=== PATIENT | female | born 1935 | race Caucasian/White ===

== ENCOUNTER → 2018-02-27 | Outpatient (CLI) | payer MEDICARE ==
--- NOTE | 2018-02-28 10:39 | US ---
EXAMINATION TYPE: US kidneys/renal and bladder DATE OF EXAM: 02/27/2018 COMPARISON: NONE CLINICAL HISTORY: N18.9 renal insufficiency. EXAM MEASUREMENTS: Right Kidney: 10.8 x 4.0 x 3.5 cm Left Kidney: 9.2 x 3.3 x 3.7 cm Post Void Residual Volume: 69.1 mL Right Kidney: No hydronephrosis or masses seen probable calculi lower pole 0.2 x 0.5 x 0.3cm Left Kidney: difficult to visualize, medial cystic non vascular structure, does not appear to be co alvina off kidney, it is not aorta , Bladder: wnl Bilateral Jets seen: Yes Normal Post Void Residual: No There is no evidence for hydronephrosis at this point in time. Some cortical thinning bilaterally is noted. Technologist klein 3 mm nonshadowing hyperechoic focus right kidney lower pole level could re flect nonobstructing calculus.. Left kidney is less well seen on images saved with poor cortical medu llary differentiation technologist identifies 2.5 x 2.2 cm oval thin-walled cyst or cystic lesion med ially in region of left kidney of uncertain etiology.. The urinary bladder is not greatly distended. Bilateral ureteral jets are seen. After voiding significant amount of urine remains present, calcul ated volume is almost 70 cc. IMPRESSION: Chronic medical renal disease bilaterally worse than left kidney. Suspect diminished function of left kidney versus right kidney. No hydronephrosis is evident bilaterally. Nonspecific 2.5 cm left sided cyst or cystic lesion of uncertain etiology. Findings can be correlated with CT if desired.
== END ==
LOC: RADUSWWP 16:02
PROVIDERS: ATTEND Internal Medicine
DX: N18.9 Chronic kidney disease, unspecified (principal)
CPT/HCPCS: 76770

== ENCOUNTER → 2018-04-24 | Outpatient (CLI) | payer MEDICARE ==
[2018-04-24 11:04] LABS: Basophils % (A) 0 %; Eosinophils # (A) 0.1 k/uL (0-0.7); Eosinophils % (A) 2 %; HCT 43.8 % (34.0-46.0); HGB 14.6 gm/dL (11.4-16.0); Lymphocytes # (A) 0.9 k/uL (1.0-4.8); Lymphocytes % (A) 15 %; MCH 31.1 pg (25.0-35.0); MCHC 33.4 g/dL (31.0-37.0); MCV 93.1 fL (80.0-100.0); Mean Platelet Volume 7.7; Monocytes # (A) 0.3 k/uL (0-1.0); Monocytes % (A) 5 %; Neutrophils # (A) 4.7 k/uL (1.3-7.7); Neutrophils % (A) 76 %; Platelet Count 191 k/uL (150-450); RDW 13.7 % (11.5-15.5); WBC 6.2 k/uL (3.8-10.6)
[2018-04-24 11:31] LABS: Appearance,Urine Cloudy (Clear); Bilirubin,Urine Negative (Negative); Blood,Urine Negative (Negative); Color,Urine Yellow; Glucose,Urine (UA) Negative (Negative); Ketones,Urine Negative (Negative); Leukocyte Esterase,Urine Moderate (Negative); Mucus,Urine Rare /hpf; Nitrite,Urine Negative (Negative); Protein,Urine Negative (Negative); RBC,Urine 1 /hpf (0-5); Specific Gravity,Urine 1.008 (1.001-1.035); Squamous Epithelial Cell,Urine 2 /hpf (0-4); Urobilinogen,Urine <2.0 mg/dL (<2.0); WBC,Urine 4 /hpf (0-5)
[2018-04-24 16:05] LABS: Iron Saturation 34.83 (12.00-45.00); Protein, Total 6.9 g/dL (6.2-8.2)
[2018-04-24 16:35] LABS: Albumin 4.8 g/dL (3.80-4.90); Anion Gap 9.5 mmol/L (4.00-12.00); Carbon Dioxide 25.5 mmol/L (21.6-31.8); Magnesium 2.1 mg/dL (1.5-2.4); Phosphorus 3.1 mg/dL (2.4-5.1); Potassium 4.8 mmol/L (3.5-5.5); Uric Acid 6.1 mg/dL (2.9-7.7)
[2018-04-24 17:20] LABS: Parathyroid Hormone Intact 116.1 pg/mL (14.0-72.0)
[2018-04-24 17:44] LABS: Creatinine,Urine Random 57.6 mg/dL
[2018-04-24 18:15] LABS: Total Protein,Urine Random 13.3 mg/dL (0.0-13.5)
[2018-04-25 13:01] LABS: Albumin 4.31 g/dL (3.80-4.90)
== END | disposition home or self-care (01) ==
LOC: LABWHC1 09:55
PROVIDERS: ATTEND Internal Medicine Nephrology
DX: N18.3 Chronic kidney disease, stage 3 (moderate) (principal); D63.1 Anemia in chronic kidney disease; E55.9 Vitamin D deficiency, unspecified; E21.3 Hyperparathyroidism, unspecified; M10.9 Gout, unspecified; N39.0 Urinary tract infection, site not specified; R80.9 Proteinuria, unspecified
CPT/HCPCS: 36415; 80048; 81001; 82040; 82306; 82570; 82728; 83540; 83550; 83735; 83970; 84100; 84156; 84165; 84550; 85025; 86335

== ENCOUNTER → 2018-08-28 | Outpatient (CLI) | payer MEDICARE ==
[2018-08-28 11:05] LABS: Basophils # (A) 0.1 k/uL (0-0.2); Basophils % (A) 1 %; Eosinophils # (A) 0.1 k/uL (0-0.7); Eosinophils % (A) 2 %; HCT 44.5 % (34.0-46.0); HGB 14.9 gm/dL (11.4-16.0); Lymphocytes # (A) 1.1 k/uL (1.0-4.8); Lymphocytes % (A) 15 %; MCH 30.9 pg (25.0-35.0); MCHC 33.4 g/dL (31.0-37.0); MCV 92.5 fL (80.0-100.0); Mean Platelet Volume 7.8; Monocytes # (A) 0.3 k/uL (0-1.0); Monocytes % (A) 4 %; Neutrophils # (A) 5.9 k/uL (1.3-7.7); Neutrophils % (A) 77 %; Platelet Count 180 k/uL (150-450); RBC 4.81 m/uL (3.80-5.40); RDW 13.7 % (11.5-15.5); WBC 7.6 k/uL (3.8-10.6)
[2018-08-28 11:18] LABS: Appearance,Urine Clear (Clear); Bacteria,Urine Rare /hpf; Bilirubin,Urine Negative (Negative); Blood,Urine Negative (Negative); Color,Urine Light Yellow; Glucose,Urine (UA) Negative (Negative); Ketones,Urine Negative (Negative); Leukocyte Esterase,Urine Large (Negative); Mucus,Urine Rare /hpf; Nitrite,Urine Negative (Negative); PH, Urine 5.5 (5.0-8.0); Protein,Urine Negative (Negative); RBC,Urine 4 /hpf (0-5); Specific Gravity,Urine 1.009 (1.001-1.035); Squamous Epithelial Cell,Urine 5 /hpf (0-4); Urobilinogen,Urine <2.0 mg/dL (<2.0); WBC,Urine 6 /hpf (0-5)
[2018-08-28 15:33] LABS: Parathyroid Hormone Intact 95.3 pg/mL (14.0-72.0)
[2018-08-28 16:02] LABS: Iron Saturation 39.51 (12.00-45.00); Protein, Total 6.9 g/dL (6.2-8.2)
[2018-08-28 16:09] LABS: Vitamin D 25 Hydroxy 46.1 ng/mL (30.0-100.0)
[2018-08-28 17:30] LABS: Albumin 4.8 g/dL (3.80-4.90); Anion Gap 10.1 mmol/L (4.00-12.00); Calcium 9.6 mg/dL (8.7-10.3); Carbon Dioxide 24.9 mmol/L (21.6-31.8); Magnesium 2.1 mg/dL (1.5-2.4); Phosphorus 3.2 mg/dL (2.4-5.1); Potassium 4.7 mmol/L (3.5-5.5); Uric Acid 5.9 mg/dL (2.9-7.7)
[2018-08-28 18:05] LABS: Creatinine,Urine Random 50.3 mg/dL
[2018-08-28 19:03] LABS: Total Protein,Urine Random 8.5 mg/dL (0.0-13.5)
[2018-08-29 14:16] LABS: Albumin 4.31 g/dL (3.80-4.90); Gamma Globulin 0.92 g/dL (0.70-1.50)
== END | disposition home or self-care (01) ==
LOC: LABWHC1 09:48
PROVIDERS: ATTEND Internal Medicine Nephrology
DX: E55.9 Vitamin D deficiency, unspecified (principal); N25.81 Secondary hyperparathyroidism of renal origin; M10.9 Gout, unspecified; R80.9 Proteinuria, unspecified; N18.3 Chronic kidney disease, stage 3 (moderate)
CPT/HCPCS: 36415; 80048; 81001; 82040; 82306; 82570; 82728; 83540; 83550; 83735; 83970; 84100; 84156; 84165; 84550; 85025; 86335

== ENCOUNTER → 2019-11-19 | Outpatient (CLI) | payer MEDICARE ==
[2019-11-19 14:36] LABS: HCT 46.1 % (34.0-46.0); HGB 15.6 gm/dL (11.4-16.0); MCH 32.2 pg (25.0-35.0); MCHC 33.8 g/dL (31.0-37.0); MCV 95.4 fL (80.0-100.0); Mean Platelet Volume 8.7; Platelet Count 193 k/uL (150-450); RBC 4.83 m/uL (3.80-5.40); RDW 13.6 % (11.5-15.5); WBC 7.4 k/uL (3.8-10.6)
[2019-11-19 15:16] LABS: Appearance,Urine Clear (Clear); Bacteria,Urine Occasional /hpf; Bilirubin,Urine Negative (Negative); Blood,Urine Negative (Negative); Color,Urine Light Yellow; Glucose,Urine (UA) Negative (Negative); Ketones,Urine Negative (Negative); Leukocyte Esterase,Urine Small (Negative); Nitrite,Urine Negative (Negative); PH, Urine 6.5 (5.0-8.0); Protein,Urine Negative (Negative); RBC,Urine <1 /hpf (0-5); Specific Gravity,Urine 1.007 (1.001-1.035); Squamous Epithelial Cell,Urine 1 /hpf (0-4); Urobilinogen,Urine <2.0 mg/dL (<2.0); WBC,Urine 1 /hpf (0-5)
[2019-11-19 20:06] LABS: % Iron Saturation 35.11 (12.00-45.00); African American GFR (CKD) 40.2 (60.0-200.0); Anion Gap 10.8 mmol/L (4.00-12.00); BUN/Creat Ratio 13.57 Ratio (12.00-20.00); Calcium 9.8 mg/dL (8.7-10.3); Carbon Dioxide 23.2 mmol/L (21.6-31.8); Magnesium 2.2 mg/dL (1.5-2.4); Non-African American GFR(CKD) 34.7 (60.0-200.0); Phosphorus 3.6 mg/dL (2.4-5.1); Potassium 4.5 mmol/L (3.5-5.5); Uric Acid 6.6 mg/dL (2.9-7.7)
[2019-11-19 20:14] LABS: Ferritin 240.5 ng/mL (10.0-291.0)
== END | disposition home or self-care (01) ==
LOC: LABWHC1 13:43
PROVIDERS: ATTEND Nurse Practitioner Family
DX: N18.3 Chronic kidney disease, stage 3 (moderate) (principal); D63.1 Anemia in chronic kidney disease; E55.9 Vitamin D deficiency, unspecified; M10.9 Gout, unspecified; N25.81 Secondary hyperparathyroidism of renal origin; N39.0 Urinary tract infection, site not specified
CPT/HCPCS: 36415; 80048; 81001; 82306; 82728; 83540; 83550; 83735; 83970; 84100; 84550; 85027

== ENCOUNTER → 2021-01-26 | Outpatient (CLI) | payer MEDICARE ==
--- NOTE | 2021-01-27 07:47 | US ---
EXAMINATION TYPE: US kidneys/renal and bladder DATE OF EXAM: 01/26/2021 COMPARISON: US 2018 CLINICAL HISTORY: N18.32 Chronic kidney disease,stage 3b. EXAM MEASUREMENTS: Right Kidney: 11.4 x 4.3 x 4.7 cm Left Kidney: 10.9 x 4.3 x 3.7 cm Right Kidney: dilated renal pelvis Left Kidney: lobulated contour, 0.6cm stone lateral mid pole, 5.9 x 2.9 x 5.2cm anechoic non vascular area seen medial to left kidney Bladder: wnl Bilateral Jets seen: yes Right ovary: 2.1 x 1.5 x 2.2cm cyst Urinary bladder is present. Posterior wall is normal. IMPRESSION: 1. Left renal stone without obstruction. 2. Inferior pole left renal cyst. 3. 6 x 3 x 5 cm anechoic nonvascular structure which is medial to the left kidney of uncertain etiolo gy. Consider CT abdomen for additional evaluation. 4. Note is made of a right ovarian cyst
== END | disposition home or self-care (01) ==
LOC: RADUSWWP 15:25
PROVIDERS: ATTEND Internal Medicine Nephrology
DX: N18.32 Chronic kidney disease, stage 3b (principal); N20.0 Calculus of kidney; N28.1 Cyst of kidney, acquired; N83.201 Unspecified ovarian cyst, right side
CPT/HCPCS: 76770

== ENCOUNTER → 2021-02-12 | Outpatient (CLI) | payer MEDICARE ==
--- NOTE | 2021-02-12 15:08 | CT ---
EXAMINATION TYPE: CT abdomen wo con DATE OF EXAM: 02/12/2021 HISTORY: Kidney disease, and left renal cyst CT DLP: 247.90 mGycm. Automated Exposure Control for Dose Reduction was Utilized. TECHNIQUE: CT scan of the abdomen is performed with oral but without IV contrast. COMPARISON: Renal ultrasound 2020 and older study 2018 FINDINGS: Within the limitations of a non-contrast study, the following observations are made. LUNG BASES: Pectus excavatum deformity inferiorly. Heart size upper limits of normal tiny inferior pe ricardial effusion LIVER/GB: No significant abnormality is appreciated. PANCREAS: No significant abnormality is seen. SPLEEN: No significant abnormality is seen. ADRENALS: Low dense thickening to left adrenal gland consistent with benign lipid rich hyperplasia. KIDNEYS: Asymmetric marked cortical atrophy to the left kidney versus the opposite right kidney. Mild diffuse cortical thinning right kidney. Scattered throughout the left kidney there are multiple cent ral simple appearing parapelvic cyst. No hydroureter identified. Mildly prominent right renal pelvis without calyceal dilatation. There is 5 mm calculus mid to lower pole level image 54. BOWEL: No suspicious dilatation. Oral contrast does not reach colonic level. A few scattered colonic diverticula. LYMPH NODES: No greater than 1cm abdominal lymph nodes are appreciated. OSSEOUS STRUCTURES: Underlying dextroconvex scoliosis centered at L2 level. Mild to moderate disc spa ce narrowing L1-L2 and L2-L3 levels. OTHER: Moderate calcified plaque of the infrarenal abdominal aorta. IMPRESSION: Asymmetric significant left renal atrophy despite overall length within normal limits. Th ere is 5 mm nonobstructing left renal calculus. Prominent central parapelvic cyst left kidney without hydronephrosis. Small right extrarenal pelvis without calyceal dilatation.
== END | disposition home or self-care (01) ==
LOC: RADCTMAIN 12:58
PROVIDERS: ATTEND Internal Medicine Nephrology
DX: N26.1 Atrophy of kidney (terminal) (principal); N20.0 Calculus of kidney; N94.89 Other specified conditions associated with female genital organs and menstrual cycle
CPT/HCPCS: 74150

== ENCOUNTER → 2021-06-09 | Outpatient (CLI) | payer MEDICARE ==
[2021-06-09 16:03] LABS: Appearance,Urine Clear (Clear); Bilirubin,Urine Negative (Negative); Blood,Urine Negative (Negative); Color,Urine Light Yellow; Glucose,Urine (UA) Negative (Negative); Ketones,Urine Negative (Negative); Leukocyte Esterase,Urine Negative (Negative); Nitrite,Urine Negative (Negative); PH, Urine 5.5 (5.0-8.0); Protein,Urine Negative (Negative); Specific Gravity,Urine 1.007 (1.001-1.035); Urobilinogen,Urine <2.0 mg/dL (<2.0)
[2021-06-09 16:40] LABS: Creatinine,Urine Random 39.3 mg/dL; Protein/Creatinine Ratio,Urine 0.229
[2021-06-09 22:33] LABS: Basophils # (A) 0.04 X 10*3/uL (0.00-0.10); Basophils % (A) 0.5 %; Eosinophils # (A) 0.08 X 10*3/uL (0.04-0.35); Eosinophils % (A) 1.1 %; HCT 44.6 % (37.2-46.3); HGB 14.6 g/dL (12.0-15.0); Lymphocytes # (A) 1.15 X 10*3/uL (0.90-5.00); Lymphocytes % (A) 15.5 %; MCH 31.4 pg (27.0-32.0); MCHC 32.7 g/dL (32.0-37.0); MCV 95.9 fL (80.0-97.0); Mean Platelet Volume 11.5 fL (9.5-12.2); Monocytes # (A) 0.56 X 10*3/uL (0.20-1.00); Monocytes % (A) 7.5 %; Neutrophils # (A) 5.57 X 10*3/uL (1.80-7.70); Platelet Count 188 X 10*3/uL (140-440); RBC 4.65 X 10*6/uL (4.10-5.20); RDW 13.8 % (11.5-14.5); WBC 7.43 X 10*3/uL (4.50-10.00)
[2021-06-09 23:02] LABS: % Iron Saturation 24.33 (12.00-45.00); Anion Gap 12.6 mmol/L (10.00-18.00); BUN/Creat Ratio 17.67 Ratio (12.00-20.00); Blood Urea Nitrogen 22.8 mg/dL (9.0-27.0); Calcium 10.2 mg/dL (8.7-10.3); Carbon Dioxide 24.3 mmol/L (20.0-27.5); Potassium 4.8 mmol/L (3.5-5.5)
== END | disposition home or self-care (01) ==
LOC: LABWHC1 13:36
PROVIDERS: ATTEND Nurse Practitioner Family
DX: N25.81 Secondary hyperparathyroidism of renal origin (principal); N18.32 Chronic kidney disease, stage 3b; E21.3 Hyperparathyroidism, unspecified; N39.0 Urinary tract infection, site not specified; D64.9 Anemia, unspecified; R80.9 Proteinuria, unspecified
CPT/HCPCS: 36415; 80048; 81003; 82570; 82728; 83540; 83550; 83970; 84156; 85025

== ENCOUNTER 2022-02-26 04:10 | Emergency (ER) | payer MEDICARE ==
[2022-02-26 04:23] VITALS: PULSE 84; RESP 19; TEMP 97.6
[2022-02-26] MEDS ORDERED: MECLIZINE 12.5 MG TAB PO STA (04:31)
--- NOTE | 2022-02-26 05:08 | XR ---
EXAMINATION TYPE: XR chest 1V portable DATE OF EXAM: 02/26/2022 COMPARISON: NONE HISTORY: Vertigo TECHNIQUE: Single view FINDINGS: There is no heart failure nor confluent pneumonic infiltrate. There are calcified granuloma ta at the pulmonary anthony. No pleural effusion. Thoracic aorta is atheromatous. IMPRESSION: Old granulomatous disease. No active cardiopulmonary disease.
[2022-02-26 05:17] LABS: Basophils % (A) 0 %; Eosinophils # (A) 0.1 k/uL (0-0.7); Eosinophils % (A) 1 %; HCT 41.3 % (34.0-46.0); HGB 14.5 gm/dL (11.4-16.0); Lymphocytes # (A) 0.5 k/uL (1.0-4.8); Lymphocytes % (A) 6 %; MCH 32.4 pg (25.0-35.0); MCHC 35.2 g/dL (31.0-37.0); Monocytes # (A) 0.1 k/uL (0-1.0); Monocytes % (A) 2 %; Neutrophils # (A) 7.6 k/uL (1.3-7.7); Neutrophils % (A) 92 %; Platelet Count 166 k/uL (150-450); RBC 4.49 m/uL (3.80-5.40); RDW 13.3 % (11.5-15.5); WBC 8.3 k/uL (3.8-10.6)
[2022-02-26 05:35] LABS: Albumin 4.5 g/dL (3.5-5.0); Calcium 9.4 mg/dL (8.4-10.2); Potassium 4.1 mmol/L (3.5-5.1); Total Bilirubin 0.7 mg/dL (0.2-1.3); Total Protein 7.1 g/dL (6.3-8.2)
[2022-02-26] MEDS ORDERED: ACETAMINOPHEN TAB 325 MG TAB PO STA (05:54)
[2022-02-26] MEDS ORDERED: ONDANSETRON 4 MG/2 ML VIAL IVP STA (06:43)
[2022-02-26 07:56] LABS: Amorphous Sediment,Urine Rare /hpf; Appearance,Urine Cloudy (Clear); Bacteria,Urine Rare /hpf; Bilirubin,Urine Negative (Negative); Blood,Urine Negative (Negative); Color,Urine Light Yellow; Glucose,Urine (UA) Negative (Negative); Ketones,Urine Trace (Negative); Leukocyte Esterase,Urine Negative (Negative); Nitrite,Urine Negative (Negative); PH, Urine 7.5 (5.0-8.0); Protein,Urine Trace (Negative); RBC,Urine 1 /hpf (0-5); Specific Gravity,Urine 1.014 (1.001-1.035); Squamous Epithelial Cell,Urine <1 /hpf (0-4); Urobilinogen,Urine <2.0 mg/dL (<2.0); WBC,Urine 1 /hpf (0-5)
--- NOTE | 2022-02-26 08:10 | ED ---
Dizziness HPI - General Chief Complaint: Dizziness Stated Complaint: Dizziness, vomiting Time Seen by Provider: 02/26/22 04:31 Source: patient, family Mode of arrival: wheelchair - History of Present Illness Initial Comments: This patient is an 86-year-old woman who presents to have evaluation of what she is describing as dizziness. This had come on tonight as she was going to bed. She describes the dizziness as a feeling like the room is spinning. She states it feels like her eyes are jumping around. She notes that it does get worse with position change. The symptoms are better with remaining still. She did not have any injury. There is no headache. No other neurologic symptoms. MD Complaint: dizziness -: hour(s) Timing: sudden onset Description: "room spinning" History of Same: No History of Trauma: No Severity: severe Improves With: remaining still Worsens With: movement Associated Symptoms: other (Nausea and vomiting) - Related Data Previous Rx's Medication Instructions Recorded Meclizine [Antivert] 25 mg PO TID PRN #15 tab 02/26/22 Ondansetron Odt [Zofran ODT] 4 mg PO Q8HR PRN #10 tab 02/26/22 Allergies Allergy/AdvReac Type Severity Reaction Status Date / Time No Known Allergies Allergy Verified 02/26/22 04:23 Review of Systems ROS Statement: Those systems with pertinent positive or pertinent negative responses have been documented in the HPI. ROS Other: All systems not noted in ROS Statement are negative. Constitutional: Denies: fever, chills, weakness Eyes: Reports: as per HPI. Denies: vision change ENT: Denies: ear pain, hearing loss Respiratory: Denies: cough, dyspnea Cardiovascular: Denies: chest pain, palpitations, orthopnea, edema, syncope Gastrointestinal: Reports: nausea, vomiting. Denies: abdominal pain, diarrhea, hematemesis, melena, hematochezia Genitourinary: Denies: dysuria, hematuria Musculoskeletal: Denies: back pain Skin: Denies: rash Neurological: Reports: vertigo. Denies: headache, weakness, numbness, confusion Past Medical History Past Medical History: Hyperlipidemia, Hypertension, Renal Disease Additional Past Medical History / Comment(s): "silent heart attack" History of Any Multi-Drug Resistant Organisms: None Reported Past Surgical History: Appendectomy Additional Past Surgical History / Comment(s): ectopic Past Psychological History: No Psychological Hx Reported Smoking Status: Never smoker Past Alcohol Use History: None Reported Past Drug Use History: None Reported General Exam General appearance: alert, in no apparent distress Head exam: Present: atraumatic, normocephalic Eye exam: Present: normal appearance, PERRL, EOMI, nystagmus. Absent: scleral icterus, conjunctival injection Neck exam: Present: normal inspection Respiratory exam: Present: normal lung sounds bilaterally. Absent: respiratory distress, wheezes, rales, rhonchi, stridor Cardiovascular Exam: Present: regular rate, normal rhythm, normal heart sounds. Absent: systolic murmur, diastolic murmur, rubs, gallop GI/Abdominal exam: Present: soft. Absent: distended, tenderness, guarding, rebound, rigid, mass Extremities exam: Present: normal inspection, normal capillary refill. Absent: pedal edema, calf tenderness Back exam: Present: normal inspection. Absent: CVA tenderness (R), CVA tenderness (L) Neurological exam: Present: alert, oriented X3, CN II-XII intact. Absent: motor sensory deficit Skin exam: Present: warm, dry, intact, normal color. Absent: rash Course Vital Signs 02/26/22 04:19 Temperature 97.6 F Pulse Rate 84 Respiratory 19 Rate O2 Sat by Pulse 98 Oximetry Medical Decision Making - Medical Decision Making This patient is an 86-year-old woman with classic peripheral vertigo. Workup is negative. She is feeling a little better after medications. We discussed appropriate further care and follow-up as well as return parameters. - Lab Data Result diagrams: 02/26/22 05:05 02/26/22 05:05 Lab Results 02/26/22 02/26/22 02/26/22 Range/Units 05:05 05:05 05:05 WBC 8.3 (3.8-10.6) k/uL RBC 4.49 (3.80-5.40) m/uL Hgb 14.5 (11.4-16.0) gm/dL Hct 41.3 (34.0-46.0) % MCV 92.0 (80.0-100.0) fL MCH 32.4 (25.0-35.0) pg MCHC 35.2 (31.0-37.0) g/dL RDW 13.3 (11.5-15.5) % Plt Count 166 (150-450) k/uL MPV 9.0 Neutrophils % 92 % Lymphocytes % 6 % Monocytes % 2 % Eosinophils % 1 % Basophils % 0 % Neutrophils # 7.6 (1.3-7.7) k/uL Lymphocytes # 0.5 L (1.0-4.8) k/uL Monocytes # 0.1 (0-1.0) k/uL Eosinophils # 0.1 (0-0.7) k/uL Basophils # 0.0 (0-0.2) k/uL Sodium 139 (137-145) mmol/L Potassium 4.1 (3.5-5.1) mmol/L Chloride 104 (98-107) mmol/L Carbon Dioxide 25 (22-30) mmol/L Anion Gap 10 mmol/L BUN 26 H (7-17) mg/dL Creatinine 1.09 H (0.52-1.04) mg/dL Est GFR (CKD-EPI)AfAm 54 (>60 ml/min/1.73 sqM) Est GFR (CKD-EPI)NonAf 47 (>60 ml/min/1.73 sqM) Glucose 153 H (74-99) mg/dL Plasma Lactic Acid Jerome 1.1 (0.7-2.0) mmol/L Calcium 9.4 (8.4-10.2) mg/dL Total Bilirubin 0.7 (0.2-1.3) mg/dL AST 24 (14-36) U/L ALT 18 (4-34) U/L Alkaline Phosphatase 98 (38-126) U/L Troponin I (0.000-0.034) ng/mL Total Protein 7.1 (6.3-8.2) g/dL Albumin 4.5 (3.5-5.0) g/dL Urine Color Urine Appearance (Clear) Urine pH (5.0-8.0) Ur Specific [place] (1.001-1.035) Urine Protein (Negative) Urine Glucose (UA) (Negative) Urine Ketones (Negative) Urine Blood (Negative) Urine Nitrite (Negative) Urine Bilirubin (Negative) Urine Urobilinogen (<2.0) mg/dL Ur Leukocyte Esterase (Negative) Urine RBC (0-5) /hpf Urine WBC (0-5) /hpf Ur Squamous Epith Cells (0-4) /hpf Amorphous Sediment (None) /hpf Urine Bacteria (None) /hpf 02/26/22 02/26/22 Range/Units 05:05 07:50 WBC (3.8-10.6) k/uL RBC (3.80-5.40) m/uL Hgb (11.4-16.0) gm/dL Hct (34.0-46.0) % MCV (80.0-100.0) fL MCH (25.0-35.0) pg MCHC (31.0-37.0) g/dL RDW (11.5-15.5) % Plt Count (150-450) k/uL MPV Neutrophils % % Lymphocytes % % Monocytes % % Eosinophils % % Basophils % % Neutrophils # (1.3-7.7) k/uL Lymphocytes # (1.0-4.8) k/uL Monocytes # (0-1.0) k/uL Eosinophils # (0-0.7) k/uL Basophils # (0-0.2) k/uL Sodium (137-145) mmol/L Potassium (3.5-5.1) mmol/L Chloride (98-107) mmol/L Carbon Dioxide (22-30) mmol/L Anion Gap mmol/L BUN (7-17) mg/dL Creatinine (0.52-1.04) mg/dL Est GFR (CKD-EPI)AfAm (>60 ml/min/1.73 sqM) Est GFR (CKD-EPI)NonAf (>60 ml/min/1.73 sqM) Glucose (74-99) mg/dL Plasma Lactic Acid Jerome (0.7-2.0) mmol/L Calcium (8.4-10.2) mg/dL Total Bilirubin (0.2-1.3) mg/dL AST (14-36) U/L ALT (4-34) U/L Alkaline Phosphatase (38-126) U/L Troponin I <0.012 (0.000-0.034) ng/mL Total Protein (6.3-8.2) g/dL Albumin (3.5-5.0) g/dL Urine Color Light Yellow Urine Appearance Cloudy H (Clear) Urine pH 7.5 (5.0-8.0) Ur Specific [place] 1.014 (1.001-1.035) Urine Protein Trace H (Negative) Urine Glucose (UA) Negative (Negative) Urine Ketones Trace H (Negative) Urine Blood Negative (Negative) Urine Nitrite Negative (Negative) Urine Bilirubin Negative (Negative) Urine Urobilinogen <2.0 (<2.0) mg/dL Ur Leukocyte Esterase Negative (Negative) Urine RBC 1 (0-5) /hpf Urine WBC 1 (0-5) /hpf Ur Squamous Epith Cells <1 (0-4) /hpf Amorphous Sediment Rare H (None) /hpf Urine Bacteria Rare H (None) /hpf Disposition Clinical Impression: Vertigo Disposition: HOME SELF-CARE Condition: Good Instructions (If sedation given, give patient instructions): Vertigo (ED) Prescriptions: Meclizine [Antivert] 25 mg PO TID PRN #15 tab PRN Reason: Vertigo Ondansetron Odt [Zofran ODT] 4 mg PO Q8HR PRN #10 tab PRN Reason: Nausea Is patient prescribed a controlled substance at d/c from ED?: No Referrals: Eloy Valdez MD [Primary Care Provider] - 1-2 days
--- NOTE | 2022-02-26 08:14 | CT ---
EXAMINATION TYPE: CT angio head neck DATE OF EXAM: 02/26/2022 HISTORY: vertigo COMPARISON: None CT DLP: 1476.1 mGycm. Automated Exposure Control for Dose Reduction was Utilized. TECHNIQUE: CTA scan of the head and neck is performed without and with IV Contrast, patient injected with 65 mL of Isovue 370, axial images are obtained, coronal and sagittal reformatted images are rev iewed. 3D reconstructed images are created on an independent workstation and reviewed. Automated expo sure control for dose reduction. FINDINGS: Brain shows periventricular white matter low-attenuation. No hemorrhage or hydrocephalus. C erebral vascular calcifications are present. Orbits are symmetric. Pectus deformity noted incidentall y in the upper chest. Carotid/Vascular Structures: Transverse aorta is patent. There are 3 super aortic branch vessels. The innominate, left and right subclavian, left and right vertebral arteries, left and right common hare tid arteries are patent. No evident stenosis, dissection, or embolus. Vertebral arteries are codomina nt. Anterior and posterior circulation within the brain are patent. No evident aneurysm, stenosis, dissec tion, or embolus. Other: IMPRESSION: No significant abnormality is seen. NASCET criteria was used in interpretation of this exam?
== END 2022-02-26 09:03 | disposition home or self-care (01) ==
LOC: EC 04:10
DX: R42 Dizziness and giddiness (principal); E78.5 Hyperlipidemia, unspecified; I12.9 Hypertensive chronic kidney disease with stage 1 through stage 4 chronic kidney disease, or unspecified chronic kidney disease; N18.9 Chronic kidney disease, unspecified; Z79.899 Other long term (current) drug therapy
CPT/HCPCS: 36415; 93005; 80053; 83605; 84484; 85025; 81001; 71045; 70496; 70498; 99284; 96374; 96375; J3360; J2405; Q9967

== ENCOUNTER 2023-07-06 20:13 | Emergency (ER) | payer MEDICARE ==
[2023-07-06 20:39] VITALS: RESP 16; TEMP 98.6
--- NOTE | 2023-07-06 20:53 | ED ---
Female Urogenital HPI - General Chief complaint: Urogenital Stated complaint: dizziness prolapsed bladder Time Seen by Provider: 07/06/23 20:52 Source: patient, family Mode of arrival: ambulatory Limitations: no limitations - History of Present Illness Initial comments: 87-year-old male presents to the ED with a chief complaint of urinary problem. Patient states recently treated for UTI. Reports UTI symptoms however most recently feels as if her bladder "popped out". States that this sometimes gives her trouble urinating however states that she is able to push it back in and this resolves. Does not currently follow with OBGYN. - Related Data Previous Rx's Medication Instructions Recorded Meclizine [Antivert] 25 mg PO TID PRN #15 tab 02/26/22 Ondansetron Odt [Zofran ODT] 4 mg PO Q8HR PRN #10 tab 02/26/22 Allergies Allergy/AdvReac Type Severity Reaction Status Date / Time No Known Allergies Allergy Verified 07/06/23 20:23 Review of Systems ROS Statement: Those systems with pertinent positive or pertinent negative responses have been documented in the HPI. ROS Other: All systems not noted in ROS Statement are negative. Past Medical History Past Medical History: Hyperlipidemia, Hypertension, Renal Disease Additional Past Medical History / Comment(s): "silent heart attack" History of Any Multi-Drug Resistant Organisms: None Reported Past Surgical History: Appendectomy Additional Past Surgical History / Comment(s): ectopic Past Psychological History: No Psychological Hx Reported Smoking Status: Never smoker Past Alcohol Use History: None Reported Past Drug Use History: None Reported General Exam - General Exam Comments Initial Comments: Visual Physical Exam Vital signs reviewed General: Well-appearing, nontoxic, no acute distress. Head: Normocephalic, atraumatic Eyes: PERRLA, EOMI ENT: Airway patent Chest: Nonlabored breathing Skin: No visual rash, normal skin tone Neuro: Alert and oriented 3 Musculoskeletal: No gross abnormalities Limitations: no limitations General appearance: alert, in no apparent distress Eye exam: Present: normal appearance Neck exam: Present: normal inspection Respiratory exam: Present: normal lung sounds bilaterally Cardiovascular Exam: Present: regular rate, normal rhythm GI/Abdominal exam: Present: soft External exam: Present: other (Exam chaperoned by Lalitha AMIN. Exam did not show any obvious large rectocele, cystocele, uterine prolapse.) Neurological exam: Present: alert, oriented X3 Skin exam: Present: warm, dry Course Vital Signs 07/06/23 20:23 Temperature 98.6 F Pulse Rate 117 H Respiratory 16 Rate Blood Pressure 172/80 O2 Sat by Pulse 95 Oximetry Medical Decision Making - Medical Decision Making Was pt. sent in by a medical professional or institution (STEFANY Boudreaux, TIRE CARE MANAGER, urgent care, hospital, or jail...) When possible be specific @ -No Did you speak to anyone other than the patient for history (EMS, parent, family, police, friend...)? What history was obtained from this source @ -No Did you review nursing and triage notes (agree or disagree)? Why? @ -I reviewed and agree with nursing and triage notes Were old charts reviewed (outside hosp., previous admission, EMS record, old EKG, old radiological studies, urgent care reports/EKG's, jail records)? Report findings @ -No old charts were reviewed Differential Diagnosis (chest pain, altered mental status, abdominal pain women, abdominal pain men, vaginal bleeding, weakness, fever, dyspnea, syncope, headache, dizziness, GI bleed, back pain, seizure, CVA, palpatations, mental health, musculoskeletal)? @ -Cystocele, rectocele, uterine prolapse. This not meant to be an all- inclusive list. EKG interpreted by me (3pts min.). @ -None X-rays interpreted by me (1pt min.). @ -None done CT interpreted by me (1pt min.). @ -None done U/S interpreted by me (1pt. min.). @ -None done What testing was considered but not performed or refused? (CT, X-rays, U/S, labs)? Why? @ -None What meds were considered but not given or refused? Why? @ -None Did you discuss the management of the patient with other professionals ([facility] i.e. STEFANY Boudreaux, TIRE CARE MANAGER, lab, RT, psych nurse, social media editor, account executive sales representative, teacher, commanding officer homicide squad, case worker)? Give summary @ -No Was smoking cessation discussed for >3mins.? @ -No Was critical care preformed (if so, how long)? @ -No Were there social determinants of health that impacted care today? How? (Homelessness, low income, unemployed, alcoholism, drug addiction, transportation, low edu. Level, literacy, decrease access to med. care, alf, rehab)? @ -No Was there de-escalation of care discussed even if they declined (Discuss DNR or withdrawal of care, Hospice)? DNR status @ -No What co-morbidities impacted this encounter? (DM, HTN, Smoking, COPD, CAD, Cancer, CVA, ARF, Chemo, Hep., AIDS, mental health diagnosis, sleep apnea, morbid obesity)? @ -None Was patient admitted / discharged? Hospital course, mention meds given and route, prescriptions, significant lab abnormalities, going to OR and other pertinent info. @ -Discharge 87-year-old female presents to the ED with complaints of "bulge" in her private area. On limited pelvic exam no obvious large cystocele, rectocele, or uterine prolapse however patient reports that she has been able to spontaneously reduce this herself. Reports that she has been able to urinate without difficulties. Patient does not follow-up with CARDIAC CATH TECH. Patient was given referral to see CARDIAC CATH TECH. Discussed return precautions with patient and family who verbalized agreement. Undiagnosed new problem with uncertain prognosis? @ -No Drug Therapy requiring intensive monitoring for toxicity (Heparin, Nitro, Insuli n, Cardizem)? @ -No Were any procedures done? @ -No Diagnosis/symptom? @ -Cystocele versus uterine prolapse Acute, or Chronic, or Acute on Chronic? @ -Acute Uncomplicated (without systemic symptoms) or Complicated (systemic symptoms)? @ -Uncomplicated Side effects of treatment? @ -No Exacerbation, Progression, or Severe Exacerbation? @ -No Poses a threat to life or bodily function? How? (Chest pain, [place], [place], pneumonia, PE, COPD, DKA, ARF, appy, cholecystitis, CVA, Diverticulitis, Homicidal, Suicidal, threat to staff... and all critical care pts) @ -No Disposition Clinical Impression: Cystocele Disposition: HOME SELF-CARE Condition: Good Instructions (If sedation given, give patient instructions): Cystocele (ED), Uterine Prolapse (ED) Additional Instructions: Please return to the Emergency Department if symptoms worsen or any other concerns. Please follow-up with CARDIAC CATH TECH. Is patient prescribed a controlled substance at d/c from ED?: No Referrals: Eloy Valdez MD [Primary Care Provider] - 1-2 days Ursula Yadav MD [STAFF PHYSICIAN] - 1-2 days Time of Disposition: 00:00
[2023-07-07 00:44] VITALS: BP 147/97; PULSE 100
== END 2023-07-07 00:21 | disposition home or self-care (01) ==
LOC: EC 20:13
DX: N81.10 Cystocele, unspecified (principal); I10 Essential (primary) hypertension

== ENCOUNTER 2023-10-08 09:58 | Emergency (ER) | payer MEDICARE ==
--- NOTE | 2023-10-08 10:23 | ED ---
Dizziness HPI - General Chief Complaint: Dizziness Stated Complaint: Dizziness Time Seen by Provider: 10/08/23 10:08 Source: patient, family, RN notes reviewed Mode of arrival: ambulatory Limitations: no limitations - History of Present Illness Initial Comments: This is an 88-year-old female who presents to the emergency department for dizziness. Patient states that this morning she started to notice dizziness when rolling over in bed. Describes this as a room spinning sensation. Denies any nausea or vomiting. States that she does feel unsteady on her feet. She has some weakness in her legs that started around 330 this morning. Does not believe that one side is worse than the other. Reports a history of vertigo and states that symptoms feel the same. Also states that her pharmacy has not refilled her amlodipine, which she takes for her blood pressure. She has not had this in 5 days. Denies any headaches, visual changes, chest pain, or shortness of breath. MD Complaint: dizziness - Related Data Previous Rx's Medication Instructions Recorded Meclizine [Antivert] 25 mg PO TID PRN #15 tab 02/26/22 Ondansetron Odt [Zofran ODT] 4 mg PO Q8HR PRN #10 tab 02/26/22 Meclizine [Antivert] 25 mg PO QID PRN #30 tab 10/08/23 amLODIPine [Norvasc] 5 mg PO DAILY #30 tab 10/08/23 cefUROXime axetiL [Ceftin] 500 mg PO BID 7 Days #14 tab 10/08/23 Allergies Allergy/AdvReac Type Severity Reaction Status Date / Time No Known Allergies Allergy Verified 07/06/23 20:23 Review of Systems ROS Statement: Those systems with pertinent positive or pertinent negative responses have been documented in the HPI. ROS Other: All systems not noted in ROS Statement are negative. Past Medical History Past Medical History: Hyperlipidemia, Hypertension, Renal Disease Additional Past Medical History / Comment(s): "silent heart attack", prolapsed bladder History of Any Multi-Drug Resistant Organisms: None Reported Past Surgical History: Appendectomy Additional Past Surgical History / Comment(s): bladder pessary, ectopic Past Psychological History: No Psychological Hx Reported Smoking Status: Never smoker Past Alcohol Use History: None Reported Past Drug Use History: None Reported General Exam Limitations: no limitations General appearance: alert, in no apparent distress Head exam: Present: atraumatic, normocephalic, normal inspection Eye exam: Present: normal appearance, PERRL, EOMI. Absent: scleral icterus, conjunctival injection, periorbital swelling ENT exam: Present: TM's normal bilaterally, normal external ear exam Respiratory exam: Present: normal lung sounds bilaterally. Absent: respiratory distress, wheezes, rales, rhonchi, stridor Cardiovascular Exam: Present: regular rate, normal rhythm, normal heart sounds. Absent: systolic murmur, diastolic murmur, rubs, gallop, clicks Neurological exam: Present: alert, oriented X3, CN II-XII intact Expanded Cerebellar function: Finger to Nose: Normal, Heel to Lubin: Normal, Romberg: Normal Motor strength exam: RUE: 5, LUE: 5, RLE: 5, LLE: 5 Psychiatric exam: Present: normal affect, normal mood Skin exam: Present: warm, dry, intact, normal color. Absent: rash Course Vital Signs 10/08/23 10/08/23 10/08/23 10:02 11:03 12:15 Temperature 97.7 F Pulse Rate 103 H 90 85 Respiratory 18 18 18 Rate Blood Pressure 177/106 150/90 133/85 O2 Sat by Pulse 96 96 96 Oximetry Medical Decision Making - Medical Decision Making This is an 88 year old female who presents to the emergency department for dizziness. Was pt. sent in by a medical professional or institution? @ -No Did you speak to anyone other than the patient for history? @ -No Did you review nursing and triage notes? @ -Yes, and I agree, it is accurate with regards to the patient's symptoms. Were old charts reviewed? @ -No Differential Diagnosis? @ -Differential Dizziness: Benign paroxysmal positional Vertigo, Menieres disease, otitis media, acoustic neuroma, vertebrobasilar insufficiency, cerebellar stroke, encephalitis, hypovolemic, arrhythmia, coronary artery syndrome, anemia, this is not meant to be an all-inclusive list EKG interpreted by me (3pts min.)? @ -EKG interpreted by me demonstrating the following: Sinus rhythm. Ventricular rate 89 bpm, W[place] interval 171 ms, QRS duration 84 ms, QTc 404 ms. X-rays interpreted by me (1pt min.)? @ -Chest x-ray obtained, my interpretation identifies no localized consolidations or infiltrates. CT interpreted by me (1pt min.)? @ -CT scan of the brain obtained. My interpretation identifies no evidence of an acute intracranial hemorrhage. U/S interpreted by me (1pt. min.)? @ -Not obtained What testing was considered but not performed? (CT, X-rays, U/S, labs)? Why? @ -None What meds were considered but not given? Why? @ -None Did you discuss the management of the patient with other professionals? @ -No Did you reconcile home meds? @ -No Was smoking cessation discussed for >3mins.? @ -No Was critical care preformed (if so, how long)? @ -No Were there social determinants of health that impacted care today? How? (Homelessness, low income, unemployed, alcoholism, drug addiction, transportation, low edu. Level, literacy, decrease access to med. care, senior care, rehab)? @ -No Was there de-escalation of care discussed even if they declined? (Discuss DNR or withdrawal of care, Hospice)? @ -No What co-morbidities impacted this encounter? (DM, HTN, Smoking, COPD, CAD, Cancer, CVA, Hep., AIDS, mental health diagnosis, sleep apnea, morbid obesity)? @ -HLD, HTN Was patient admitted / discharged? @ -Discharged. Lab work demonstrates signs of dehydration and was otherwise unremarkable. Urinalysis suggestive of potential infection. Chest x-ray reveals no acute process. Given that the patient fell like she had weakness in her lower extremities, CT scan of the brain was obtained. This revealed no acute process. NIH was 0. HINTS exam negative. Patient was given IV fluids, Antivert, and her home dose of amlodipine. She had improvement in symptoms afterwards. Given her history of vertigo and improvement with medication, discussed that symptoms may be related to a another bout of this. She was given a prescription for Antivert and amlodipine was refilled as well. She was also given a prescription for cefuroxime for UTI and urine was sent for culture. Advise close follow-up with her primary care provider. Undiagnosed new problem with uncertain prognosis? @ -None Drug Therapy requiring intensive monitoring for toxicity (Heparin, Nitro, Insulin, Cardizem)? @ -None Were any procedures done? @ -None Diagnosis/symptom? @ -BPPV, UTI Acute, or Chronic, or Acute on Chronic? @ -Acute Uncomplicated (without systemic symptoms) or Complicated (systemic symptoms)? @ -Uncomplicated Side effects of treatment? @ -None Exacerbation, Progression, or Severe Exacerbation] @ -Not applicable Poses a threat to life or bodily function? @ -No Return precautions reviewed in depth, the patient is instructed to return to the emergency department with any new, worsening, or concerning symptoms. Patient verbalized understanding. This case was discussed in detail with the attending ED physician, Dr. Teran. Presentation, findings, and treatment plan discussed in detail as well. - Lab Data Result diagrams: 10/08/23 10:29 10/08/23 10: Lab Results 10/08/23 10/08/23 10/08/23 Range/Units 10: 10: 10: WBC 5.9 (3.8-10.6) k/uL RBC 4.38 (3.80-5.40) m/uL Hgb 14.2 (11.4-16.0) gm/dL Hct 41.4 (34.0-46.0) % MCV 94.5 (80.0-100.0) fL MCH 32.3 (25.0-35.0) pg MCHC 34.2 (31.0-37.0) g/dL RDW 13.6 (11.5-15.5) % Plt Count 154 (150-450) k/uL MPV 8.5 Neutrophils % 79 % Lymphocytes % 13 % Monocytes % 4 % Eosinophils % 2 % Basophils % 1 % Neutrophils # 4.7 (1.3-7.7) k/uL Lymphocytes # 0.8 L (1.0-4.8) k/uL Monocytes # 0.3 (0-1.0) k/uL Eosinophils # 0.1 (0-0.7) k/uL Basophils # 0.0 (0-0.2) k/uL PT 11.1 (10.0-12.5) sec INR 1.0 (<1.2) Sodium 139 (137-145) mmol/L Potassium 4.2 (3.5-5.1) mmol/L Chloride 110 H (98-107) mmol/L Carbon Dioxide 23 (22-30) mmol/L Anion Gap 6 mmol/L BUN 20 H (7-17) mg/dL Creatinine 1.28 H (0.52-1.04) mg/dL Est GFR (CKD-EPI)AfAm 44 (>60 ml/min/1.73 sqM) Est GFR (CKD-EPI)NonAf 38 (>60 ml/min/1.73 sqM) Glucose 125 H (74-99) mg/dL Calcium 9.2 (8.4-10.2) mg/dL Magnesium 2.1 (1.6-2.3) mg/dL Total Bilirubin 0.7 (0.2-1.3) mg/dL AST 21 (14-36) U/L ALT 15 (4-34) U/L Alkaline Phosphatase 99 (38-126) U/L Troponin I (0.000-0.034) ng/mL Total Protein 7.0 (6.3-8.2) g/dL Albumin 4.3 (3.5-5.0) g/dL Urine Color Urine Appearance (Clear) Urine pH (5.0-8.0) Ur Specific [place] (1.001-1.035) Urine Protein (Negative) Urine Glucose (UA) (Negative) Urine Ketones (Negative) Urine Blood (Negative) Urine Nitrite (Negative) Urine Bilirubin (Negative) Urine Urobilinogen (<2.0) mg/dL Ur Leukocyte Esterase (Negative) Urine RBC (0-5) /hpf Urine WBC (0-5) /hpf Ur Squamous Epith Cells (0-4) /hpf Urine Bacteria (None) /hpf 10/08/23 10/08/23 Range/Units 10:29 12:06 WBC (3.8-10.6) k/uL RBC (3.80-5.40) m/uL Hgb (11.4-16.0) gm/dL Hct (34.0-46.0) % MCV (80.0-100.0) fL MCH (25.0-35.0) pg MCHC (31.0-37.0) g/dL RDW (11.5-15.5) % Plt Count (150-450) k/uL MPV Neutrophils % % Lymphocytes % % Monocytes % % Eosinophils % % Basophils % % Neutrophils # (1.3-7.7) k/uL Lymphocytes # (1.0-4.8) k/uL Monocytes # (0-1.0) k/uL Eosinophils # (0-0.7) k/uL Basophils # (0-0.2) k/uL PT (10.0-12.5) sec INR (<1.2) Sodium (137-145) mmol/L Potassium (3.5-5.1) mmol/L Chloride (98-107) mmol/L Carbon Dioxide (22-30) mmol/L Anion Gap mmol/L BUN (7-17) mg/dL Creatinine (0.52-1.04) mg/dL Est GFR (CKD-EPI)AfAm (>60 ml/min/1.73 sqM) Est GFR (CKD-EPI)NonAf (>60 ml/min/1.73 sqM) Glucose (74-99) mg/dL Calcium (8.4-10.2) mg/dL Magnesium (1.6-2.3) mg/dL Total Bilirubin (0.2-1.3) mg/dL AST (14-36) U/L ALT (4-34) U/L Alkaline Phosphatase (38-126) U/L Troponin I <0.012 (0.000-0.034) ng/mL Total Protein (6.3-8.2) g/dL Albumin (3.5-5.0) g/dL Urine Color Colorless Urine Appearance Cloudy H (Clear) Urine pH 7.0 (5.0-8.0) Ur Specific [place] 1.005 (1.001-1.035) Urine Protein Negative (Negative) Urine Glucose (UA) Negative (Negative) Urine Ketones Negative (Negative) Urine Blood Negative (Negative) Urine Nitrite Negative (Negative) Urine Bilirubin Negative (Negative) Urine Urobilinogen <2.0 (<2.0) mg/dL Ur Leukocyte Esterase Large H (Negative) Urine RBC 2 (0-5) /hpf Urine WBC 27 H (0-5) /hpf Ur Squamous Epith Cells 3 (0-4) /hpf Urine Bacteria Occasional H (None) /hpf - Radiology Data Radiology results: report reviewed, image reviewed Disposition Clinical Impression: BPPV (benign paroxysmal positional vertigo), UTI (urinary tract infection) Disposition: HOME SELF-CARE Instructions (If sedation given, give patient instructions): Vertigo (ED), Dizziness (ED) Additional Instructions: Return to the emergency department with any new, worsening, or concerning symptoms. Take the antibiotic as prescribed for 7 days. You can take the meclizine up to 4 times daily as needed for feelings of vertigo/dizziness. Begin taking your blood pressure medication daily. Follow up with your primary care provider in 1-2 days. Prescriptions: Meclizine [Antivert] 25 mg PO QID PRN #30 tab PRN Reason: Vertigo cefUROXime axetiL [Ceftin] 500 mg PO BID 7 Days #14 tab amLODIPine [Norvasc] 5 mg PO DAILY #30 tab Is patient prescribed a controlled substance at d/c from ED?: No Referrals: None,Stated [Primary Care Provider] - 1-2 days Time of Disposition: 12:42
[2023-10-08 10:38] LABS: Basophils % (A) 1 %; Eosinophils # (A) 0.1 k/uL (0-0.7); Eosinophils % (A) 2 %; HCT 41.4 % (34.0-46.0); HGB 14.2 gm/dL (11.4-16.0); Lymphocytes # (A) 0.8 k/uL (1.0-4.8); Lymphocytes % (A) 13 %; MCH 32.3 pg (25.0-35.0); MCHC 34.2 g/dL (31.0-37.0); MCV 94.5 fL (80.0-100.0); Mean Platelet Volume 8.5; Monocytes # (A) 0.3 k/uL (0-1.0); Monocytes % (A) 4 %; Neutrophils # (A) 4.7 k/uL (1.3-7.7); Neutrophils % (A) 79 %; Platelet Count 154 k/uL (150-450); RBC 4.38 m/uL (3.80-5.40); RDW 13.6 % (11.5-15.5); WBC 5.9 k/uL (3.8-10.6)
[2023-10-08 10:42] LABS: Prothrombin Time 11.1 sec (10.0-12.5)
[2023-10-08 10:50] LABS: ALT 15 U/L (4-34); AST 21 U/L (14-36); African American GFR (CKD) 44 (>60 ml/min/1.73 sqM); Albumin 4.3 g/dL (3.5-5.0); Alkaline Phosphatase 99 U/L (38-126); Anion Gap 6 mmol/L; Blood Urea Nitrogen 20 mg/dL (7-17); Calcium 9.2 mg/dL (8.4-10.2); Carbon Dioxide 23 mmol/L (22-30); Chloride 110 mmol/L (98-107); Glucose 125 mg/dL (74-99); Magnesium 2.1 mg/dL (1.6-2.3); Non-African American GFR(CKD) 38 (>60 ml/min/1.73 sqM); Potassium 4.2 mmol/L (3.5-5.1); Sodium 139 mmol/L (137-145); Total Bilirubin 0.7 mg/dL (0.2-1.3)
[2023-10-08] MEDS: amLODIPine 5 MG TAB PO STA (10:53)
[2023-10-08] MEDS: MECLIZINE 12.5 MG TAB PO STA (10:53)
[2023-10-08] MEDS: SODIUM CHLORIDE 0.9% 1,000 ML IV STA (10:53)
[2023-10-08 10:54] VITALS: RESP 18; TEMP 97.7
--- NOTE | 2023-10-08 11:29 | XR ---
EXAMINATION TYPE: XR chest 2V DATE OF EXAM: 10/08/2023 COMPARISON: 02/26/2022 INDICATION: Dizziness TECHNIQUE: Frontal and lateral views of the chest are obtained. FINDINGS: The heart size is normal. The pulmonary vasculature is normal. The lungs are clear. IMPRESSION: 1. No acute pulmonary process.
--- NOTE | 2023-10-08 11:29 | CT ---
EXAMINATION TYPE: CT brain wo con DATE OF EXAM: 10/08/2023 COMPARISON: None INDICATION: Dizziness, leg weakness DLP: 1091.4 mGycm, Automated exposure control for dose reduction was used. CONTRAST: None CT of the brain is performed utilizing 3 mm thick sections through the posterior fossa and 3 mm thick sections through the remaining calvarium. Study is performed within 24 hours of arrival to the hosp ital. No abnormal hyperdensity is present to suggest an acute intracranial hemorrhage. No mass lesion is evident. No acute infarcts are evident. There is some mild periventricular white matter hypodensity, likely on the basis of chronic white matter ischemic changes. Ventricles and sulci are appropriate for the patient age. Paranasal sinuses and mastoid air cells within the [id number] are clear. IMPRESSION: 1. Mild chronic appearing periventricular white matter ischemic-type changes.
[2023-10-08 12:37] VITALS: BP 133/85; PULSE 85
[2023-10-08 12:37] LABS: Appearance,Urine Cloudy (Clear); Bacteria,Urine Occasional /hpf; Bilirubin,Urine Negative (Negative); Blood,Urine Negative (Negative); Color,Urine Colorless; Glucose,Urine (UA) Negative (Negative); Ketones,Urine Negative (Negative); Leukocyte Esterase,Urine Large (Negative); Nitrite,Urine Negative (Negative); Protein,Urine Negative (Negative); RBC,Urine 2 /hpf (0-5); Specific Gravity,Urine 1.005 (1.001-1.035); Squamous Epithelial Cell,Urine 3 /hpf (0-4); Urobilinogen,Urine <2.0 mg/dL (<2.0); WBC,Urine 27 /hpf (0-5)
[2023-10-08] MEDS: cefTRIAXone IN SWFI 1,000 MG/10 ML SYRINGE IVP STA (12:50)
== END 2023-10-08 13:13 | disposition home or self-care (01) ==
LOC: EC 09:58
DX: H81.10 Benign paroxysmal vertigo, unspecified ear (principal); N39.0 Urinary tract infection, site not specified; I10 Essential (primary) hypertension; E78.5 Hyperlipidemia, unspecified
CPT/HCPCS: 99284; 96374; 96361; 36415; 93005; 80053; 83735; 84484; 85025; 85610; 81001; 87086; 87077; 87186; 71046; 70450; J0696

== ENCOUNTER 2024-03-27 23:16 | Inpatient (IN) | payer MEDICARE ==
[2024-03-27] MEDS: SODIUM CHLORIDE 0.9% 500 ML 500 ML IV STA (23:58)
[2024-03-27] MEDS: MECLIZINE 12.5 MG TAB PO STA (23:58)
[2024-03-28 00:18] LABS: Basophils % (A) 0 %; Eosinophils # (A) 0.1 k/uL (0-0.7); Eosinophils % (A) 1 %; HCT 44.9 % (34.0-46.0); HGB 15.2 gm/dL (11.4-16.0); Lymphocytes # (A) 0.7 k/uL (1.0-4.8); Lymphocytes % (A) 8 %; MCH 31.8 pg (25.0-35.0); MCHC 33.8 g/dL (31.0-37.0); MCV 93.9 fL (80.0-100.0); Mean Platelet Volume 8.7; Monocytes # (A) 0.4 k/uL (0-1.0); Monocytes % (A) 5 %; Neutrophils # (A) 7.4 k/uL (1.3-7.7); Neutrophils % (A) 85 %; Platelet Count 176 k/uL (150-450); RBC 4.79 m/uL (3.80-5.40); RDW 13.9 % (11.5-15.5); WBC 8.7 k/uL (3.8-10.6)
[2024-03-28] MEDS: ONDANSETRON 4 MG/2 ML VIAL IVP STA (00:18)
--- NOTE | 2024-03-28 00:38 | ED ---
Dizziness HPI - General Chief Complaint: Dizziness Stated Complaint: abd pain, dizzy, nausea Time Seen by Provider: 03/27/24 23:29 Source: patient, family, RN notes reviewed Mode of arrival: wheelchair Limitations: no limitations - History of Present Illness Initial Comments: 88-year-old female presents emergency department with chief complaint of dizzin ess, nausea and abdominal pain. She states started on Monday with some dizziness with movement. She states that she felt very lightheaded but also more dizziness. She states she has a history of vertigo. She noticed last day or so she has had increased abdominal pain, distention with reflux and nausea. Patient states that she still having bowel movements, passing gas she has had a prior appendectomy years ago she denies any chest pain she has had some palpitations. She denies any focal weakness. She states all symptoms are better at rest. - Related Data Previous Rx's Medication Instructions Recorded Meclizine [Antivert] 25 mg PO TID PRN #15 tab 02/26/22 Ondansetron Odt [Zofran ODT] 4 mg PO Q8HR PRN #10 tab 02/26/22 Meclizine [Antivert] 25 mg PO QID PRN #30 tab 10/08/23 amLODIPine [Norvasc] 5 mg PO DAILY #30 tab 10/08/23 cefuroxime axetiL [Ceftin] 500 mg PO BID 7 Days #14 tab 10/08/23 Allergies Allergy/AdvReac Type Severity Reaction Status Date / Time No Known Allergies Allergy Verified 03/27/24 23:21 Review of Systems ROS Statement: Those systems with pertinent positive or pertinent negative responses have been documented in the HPI. ROS Other: All systems not noted in ROS Statement are negative. Past Medical History Past Medical History: Hyperlipidemia, Hypertension, Renal Disease Additional Past Medical History / Comment(s): "silent heart attack", prolapsed bladder History of Any Multi-Drug Resistant Organisms: None Reported Past Surgical History: Appendectomy Additional Past Surgical History / Comment(s): bladder pessary, ectopic Past Psychological History: No Psychological Hx Reported Smoking Status: Never smoker Past Alcohol Use History: None Reported Past Drug Use History: None Reported General Exam Limitations: no limitations General appearance: alert, in no apparent distress Head exam: Present: atraumatic, normocephalic, normal inspection Eye exam: Present: normal appearance, PERRL, EOMI. Absent: scleral icterus, conjunctival injection, periorbital swelling ENT exam: Present: normal exam, normal oropharynx, mucous membranes moist Neck exam: Present: normal inspection, full ROM. Absent: tenderness, meningismus, lymphadenopathy Respiratory exam: Present: normal lung sounds bilaterally. Absent: respiratory distress, wheezes, rales, rhonchi, stridor Cardiovascular Exam: Present: normal rhythm, tachycardia, normal heart sounds. Absent: systolic murmur, diastolic murmur, rubs, gallop, clicks GI/Abdominal exam: Present: soft, distended, tenderness, normal bowel sounds. Absent: guarding, rebound, rigid Back exam: Present: normal inspection Neurological exam: Present: alert, oriented X3, CN II-XII intact, reflexes normal, other (Finger to nose intact bilaterally). Absent: motor sensory deficit Course Vital Signs 03/27/24 23:18 Temperature 98.0 F Pulse Rate 104 H Respiratory 18 Rate Blood Pressure 163/94 O2 Sat by Pulse 94 L Oximetry EKG Findings - EKG Comments: EKG Findings:: EKG performed at 23: 44 sinus rhythm rate 96 DE 172 QRS 84 QT/QTc 355/408 - EKG Results: EKG: interpreted by NICO Medical Decision Making - Medical Decision Making Was pt. sent in by a medical professional or institution (STEFANY Boudreaux, FOUNDRY TECHNICIAN, urgent care, hospital, or shelter...) When possible be specific @ -No Did you speak to anyone other than the patient for history (EMS, parent, family, police, friend...)? What history was obtained from this source @ -No Did you review nursing and triage notes (agree or disagree)? Why? @ -I reviewed and agree with nursing and triage notes Were old charts reviewed (outside hosp., previous admission, EMS record, old EKG, old radiological studies, urgent care reports/EKG's, shelter records)? Report findings @ -No old charts were reviewed Differential Diagnosis (chest pain, altered mental status, abdominal pain women, abdominal pain men, vaginal bleeding, weakness, fever, dyspnea, syncope, headache, dizziness, GI bleed, back pain, seizure, CVA, palpatations, mental health, musculoskeletal)? @ -[Differential Dizziness: Benign paroxysmal positional Vertigo, Meniere's disease, otitis media, acoustic neuroma, vertebrobasilar insufficiency, cerebellar stroke, encephalitis, hypov olemic, arrhythmia, coronary artery syndrome, anemia, this is not meant to be an all-inclusive list Differential Abdominal Pain Women: Appendicitis, Cholecystitis, diverticulosis, ischemic bowel, pancreatitis, hepatitis, UTI, gastroenteritis, AAA, incarcerated hernia, bowel obstruction, constipation, inflammatory bowel, hepatitis, peptic ulcer disease, splenic infarction, perforated viscus, vulvitis, ovarian torsion, PID, kidney stone, placenta abruption, this is not meant to be an all-inclusive list EKG interpreted by me (3pts min.). @ -As above X-rays interpreted by me (1pt min.). @ -X-ray 1 view chest showing placement of KUB CT interpreted by me (1pt min.). @ -[CT brain showed no acute intracranial hemorrhage, mass effect CT abdomen pelvis without contrast showing small bowel obstruction U/S interpreted by me (1pt. min.). @ -None done What testing was considered but not performed or refused? (CT, X-rays, U/S, labs)? Why? @ -None What meds were considered but not given or refused? Why? @ -None Did you discuss the management of the patient with other professionals (professionals i.e. , PA, FOUNDRY TECHNICIAN, lab, RT, psych nurse, social services aide, chaplain resident, teacher, chief learning officer, spring encaser)? Give summary @ -EM for admission with consult to general surgery Was smoking cessation discussed for >3mins.? @ -No Was critical care preformed (if so, how long)? @ -No Were there social determinants of health that impacted care today? How? (Homelessness, low income, unemployed, alcoholism, drug addiction, transportation, low edu. Level, literacy, decrease access to med. care, long term, rehab)? @ -No Was there de-escalation of care discussed even if they declined (Discuss DNR or withdrawal of care, Hospice)? DNR status @ -No What co-morbidities impacted this encounter? (DM, HTN, Smoking, COPD, CAD, Cancer, CVA, ARF, Chemo, Hep., AIDS, mental health diagnosis, sleep apnea, morbid obesity)? @ -None Was patient admitted / discharged? Hospital course, mention meds given and route, prescriptions, significant lab abnormalities, going to OR and other pertinent info. @ -Admitted patient presented for abdominal pain, dizziness. Patient found to have small bowel obstruction NG tube was placed by RN. Patient will be hydrated, antiemetics and surgery consult Undiagnosed new problem with uncertain prognosis? @ -Yes Drug Therapy requiring intensive monitoring for toxicity (Heparin, Nitro, Insul in, Cardizem)? @ -No Were any procedures done? @ -No Diagnosis/symptom? @ -Small bowel obstruction, dizziness Acute, or Chronic, or Acute on Chronic? @ -Acute Uncomplicated (without systemic symptoms) or Complicated (systemic symptoms)? @ -complicated Side effects of treatment? @ -No Exacerbation, Progression, or Severe Exacerbation? @ -No Poses a threat to life or bodily function? How? (Chest pain, [place], [place], pneumonia, PE, COPD, DKA, ARF, appy, cholecystitis, CVA, Diverticulitis, Homicidal, Suic idal, threat to staff... and all critical care pts) @ -Yes surgical risk - Lab Data Result diagrams: 03/28/24 00:05 03/28/24 00:05 Lab Results 03/28/24 03/28/24 03/28/24 Range/Units 00:05 00:05 00:05 WBC 8.7 (3.8-10.6) k/uL RBC 4.79 (3.80-5.40) m/uL Hgb 15.2 (11.4-16.0) gm/dL Hct 44.9 (34.0-46.0) % MCV 93.9 (80.0-100.0) fL MCH 31.8 (25.0-35.0) pg MCHC 33.8 (31.0-37.0) g/dL RDW 13.9 (11.5-15.5) % Plt Count 176 (150-450) k/uL MPV 8.7 Neutrophils % 85 % Lymphocytes % 8 % Monocytes % 5 % Eosinophils % 1 % Basophils % 0 % Neutrophils # 7.4 (1.3-7.7) k/uL Lymphocytes # 0.7 L (1.0-4.8) k/uL Monocytes # 0.4 (0-1.0) k/uL Eosinophils # 0.1 (0-0.7) k/uL Basophils # 0.0 (0-0.2) k/uL Sodium 139 (137-145) mmol/L Potassium 4.1 (3.5-5.1) mmol/L Chloride 106 (98-107) mmol/L Carbon Dioxide 23 (22-30) mmol/L Anion Gap 10 mmol/L BUN 24 H (7-17) mg/dL Creatinine 1.29 H (0.52-1.04) mg/dL Est GFR (CKD-EPI)AfAm 43 (>60 ml/min/1.73 sqM) Est GFR (CKD-EPI)NonAf 37 (>60 ml/min/1.73 sqM) Glucose 123 H (74-99) mg/dL Calcium 9.8 (8.4-10.2) mg/dL Total Bilirubin 1.3 (0.2-1.3) mg/dL AST 25 (14-36) U/L ALT 16 (4-34) U/L Alkaline Phosphatase 90 (38-126) U/L Troponin I <0.012 (0.000-0.034) ng/mL Total Protein 7.5 (6.3-8.2) g/dL Albumin 4.6 (3.5-5.0) g/dL Disposition Clinical Impression: SBO (small bowel obstruction), Dizziness Disposition: ADMITTED IP TO THIS HOSP Condition: Fair Referrals: Linwood Rai DO [Primary Care Provider] - 1-2 days Time of Disposition: 01:31
[2024-03-28 00:43] LABS: ALT 16 U/L (4-34); AST 25 U/L (14-36); African American GFR (CKD) 43 (>60 ml/min/1.73 sqM); Albumin 4.6 g/dL (3.5-5.0); Alkaline Phosphatase 90 U/L (38-126); Anion Gap 10 mmol/L; Blood Urea Nitrogen 24 mg/dL (7-17); Calcium 9.8 mg/dL (8.4-10.2); Carbon Dioxide 23 mmol/L (22-30); Chloride 106 mmol/L (98-107); Glucose 123 mg/dL (74-99); Non-African American GFR(CKD) 37 (>60 ml/min/1.73 sqM); Potassium 4.1 mmol/L (3.5-5.1); Sodium 139 mmol/L (137-145); Total Bilirubin 1.3 mg/dL (0.2-1.3); Total Protein 7.5 g/dL (6.3-8.2)
--- NOTE | 2024-03-28 00:54 | CT ---
EXAM: CT Head Without Intravenous Contrast CLINICAL HISTORY: ITS.REASON CT Reason: dizziness TECHNIQUE: Axial computed tomography images of the head/brain without intravenous contrast. CTDI is 49.1 mGy and DLP is 1095.7 mGy-cm. This CT exam was performed using one or more of the following dose reduction techniques: automated exposure control, adjustment of the mA and/or kV according to patient size, and/or use of iterative reconstruction technique. COMPARISON: No relevant prior studies available. FINDINGS: No acute intracranial hemorrhage. No midline shift or mass effect. The territorial campbell-white matter differentiation is maintained throughout. Age-related cerebral volume loss. Periventricular and subcortical white matter hypoattenuation, consistent with chronic microangiopathy. The visualized orbits appear grossly unremarkable. The calvarium is intact. The visualized paranasal sinuses and mastoid air cells are grossly clear. IMPRESSION: No acute intracranial hemorrhage, midline shift, or mass effect.
--- NOTE | 2024-03-28 01:02 | CT ---
EXAM: CT Abdomen and Pelvis Without Intravenous Contrast CLINICAL HISTORY: ITS.REASON CT Reason: abd pain/distention TECHNIQUE: Axial computed tomography images of the abdomen and pelvis without intravenous contrast. CTDI is 549 mGy and DLP is 8.4 mGy-cm. This CT exam was performed using one or more of the following dose reduction techniques: automated exposure control, adjustment of the mA and/or kV according to patient size, and/or use of iterative reconstruction technique. COMPARISON: No relevant prior studies available. FINDINGS: Lung bases: Unremarkable. No mass. No consolidation. ABDOMEN: Liver: Unremarkable. Gallbladder and bile ducts: Unremarkable. No calcified stones. No ductal dilation. Pancreas: Unremarkable. No ductal dilation. Spleen: Unremarkable. No splenomegaly. Adrenals: Unremarkable. No mass. Kidneys and ureters: Atrophy of the LEFT kidney lower pole. Nonobstructing 4 mm LEFT lower pole renal stone. Stomach and bowel: Dilated small bowel measuring up to 3.5 cm with air- fluid level, consistent with bowel obstruction. The bowel within the LEFT lower quadrant and pelvis is thickened with mild surrounding edema, consistent with enteritis. The need for surgical evaluation should be determined clinically. Diverticulosis, without acute diverticulitis. No free air. PELVIS: Appendix: No findings to suggest acute appendicitis. Bladder: Unremarkable. No stones. Reproductive: Prosthesis within the pelvis, which may be within the vagina. Correlate with surgical history. ABDOMEN and PELVIS: Intraperitoneal space: See above. Bones/joints: Pectus excavatum deformity. No acute fracture. No dislocation. Soft tissues: Unremarkable. Vasculature: Unremarkable. No abdominal aortic aneurysm. Lymph nodes: Unremarkable. No enlarged lymph nodes. IMPRESSION: 1. Dilated small bowel measuring up to 3.5 cm with air-fluid level, consistent with bowel obstruction. The bowel within the LEFT lower quadrant and pelvis is thickened with mild surrounding edema, consistent with enteritis. The need for surgical evaluation should be determined clinically. 2. Atrophy of the LEFT kidney lower pole. Nonobstructing 4 mm LEFT lower pole renal stone.
[2024-03-28] MEDS ORDERED: NALOXONE 0.4 MG/ML 1 ML VIAL IV PRN (01:31)
[2024-03-28] MEDS: LIDOCAINE 2% URO-JET JELLY 5 ML KIT MISCELLANE ONE (02:24)
[2024-03-28] MEDS: SODIUM CHLORIDE 0.9% 1,000 ML IV SCH (02:24)
[2024-03-28 02:41] LABS: Amorphous Sediment,Urine Rare /hpf; Appearance,Urine Cloudy (Clear); Bacteria,Urine Few /hpf; Bilirubin,Urine Negative (Negative); Blood,Urine Trace (Negative); Budding Yeast,Urine Moderate /hpf; Color,Urine Yellow; Glucose,Urine (UA) Negative (Negative); Ketones,Urine 1+ (Negative); Leukocyte Esterase,Urine Large (Negative); Mucus,Urine Rare /hpf; Nitrite,Urine Positive (Negative); Protein,Urine Trace (Negative); RBC,Urine 19 /hpf (0-5); Specific Gravity,Urine 1.022 (1.001-1.035); Squamous Epithelial Cell,Urine 15 /hpf (0-4); Urobilinogen,Urine <2.0 mg/dL (<2.0); WBC,Urine >182 /hpf (0-5)
--- NOTE | 2024-03-28 03:26 | XR ---
EXAM: XR Chest, 1 View CLINICAL HISTORY: confirm NG placement TECHNIQUE: Frontal view of the lower chest and upper abdomen. COMPARISON: CT abdomen and pelvis from 02/12/21 FINDINGS: Lungs: Clear. Pleural space: Unremarkable. Mediastinum: Cardiomegaly. Bones/joints: No acute findings. Tubes, lines and devices: Sidehole and tip of enteric tube are in the body of the stomach. Upper abdomen: Loops of small bowel are dilated, measuring up to 3.7 cm maximal diameter, suggests ileus versus obstruction. IMPRESSION: 1. Sidehole and tip of enteric tube are in the body of the stomach. 2. Loops of small bowel are dilated, measuring up to 3.7 cm maximal diameter, suggests ileus versus obstruction.
--- NOTE | 2024-03-28 13:43 | P.GSCN ---
History of Present Illness Consult date: 03/28/24 History of present illness: CHIEF COMPLAINT: Abdominal pain HISTORY OF PRESENT ILLNESS: This is a 88-year-old female who presented with nausea vomiting and abdominal pain. She reports symptoms started on Monday initially with nausea vomiting and she did start have diffuse abdominal pain. She also had reported feeling dizzy and initially thought all of her symptoms were related to her vertigo. But symptoms did not resolve with the vertigo medication. Patient's last bowel movement was Monday. She reports having passed a small amount of flatus today. She does have a past surgical history of open appendectomy and removal of fallopian tube. CT scan abdomen pelvis had reported evidence of a small bowel obstruction. Patient has NG tube in place. She does report relief in pain with NG tube placement. Patient does report a past medical history of a bowel obstruction during her childhood that may have been managed conservatively she is unsure. PAST MEDICAL HISTORY: Hyperlipidemia, Hypertension, Renal Disease PAST SURGICAL HISTORY: Appendectomy, fallopian tube removal MEDICATIONS: See below ALLERGIES: See below SOCIAL HISTORY: No illicit drug use. REVIEW OF SYSTEMS: CONSTITUTIONAL: Denies fever or chills. HEENT: Denies blurred vision, vision changes, or eye pain. Denies hemoptysis CARDIOVASCULAR: Denies chest pain or pressure. RESPIRATORY: No shortness of breath. GASTROINTESTINAL: See HPI for pertinent findings HEMATOLOGIC: Denies bleeding disorders. GENITOURINARY: Denies any blood in urine or increased urinary frequency. SKIN: Denies pruitis. Denies rash. PHYSICAL EXAM: VITAL SIGNS: Reviewed GENERAL: Well-developed in no acute distress. HEENT: No sclera icterus. Extraocular movements grossly intact. Moist buccal mucosa. Head is atraumatic, normocephalic. No nasal drainage. ABDOMEN: Soft. Distended. Tenderness in the mid abdomen. Old lower midline abdominal scar NEUROLOGIC: Alert and oriented. Cranial nerves II through XII grossly intact. LABORATORY DATA: WBC 8.7 Hgb 15.2 platelets 176 Sodium 139 potassium 4.1 creatinine 1.29 Troponin is negative IMAGING: CT scan abdomen pelvis reports dilated small bowel measuring up to 3.5 cm with air-fluid level consistent with bowel obstruction. The bowel within the left lower quadrant and pelvis is thickened with mid surrounding edema consistent with enteritis. Atrophy of the left kidney. Nonobstructive left lower pole renal stone. ASSESSMENT: 1. Small bowel obstruction 2. Prior history of appendectomy PLAN: -Continue NG tube for decompression -Keep patient n.p.o. -Continue IV fluids -Continue supportive care -Encourage patient to increase activity level Physician Drawbridge Tender note has been reviewed by physician. Signing provider agrees with the documented findings, assessment, and plan of care. Past Medical History Past Medical History: Hyperlipidemia, Hypertension, Renal Disease Additional Past Medical History / Comment(s): "silent heart attack", prolapsed bladder History of Any Multi-Drug Resistant Organisms: None Reported Past Surgical History: Appendectomy Additional Past Surgical History / Comment(s): bladder pessary, ectopic Past Psychological History: No Psychological Hx Reported Smoking Status: Never smoker Past Alcohol Use History: None Reported Past Drug Use History: None Reported Medications and Allergies Home Medications Medication Instructions Recorded Confirmed Type amLODIPine [Norvasc] 5 mg PO DAILY #30 tab 10/08/23 03/28/24 Rx Ergocalciferol [Vitamin D2 (1250 1,250 mcg PO Q14D 03/28/24 03/28/24 History Mcg = 22350 Iu)] Estrogens, Conjugated Cream 1 applic TOPICAL MOTH 03/28/24 03/28/24 History [Premarin Vaginal Cream] Vibegron [Gemtesa] 75 mg PO DAILY 03/28/24 03/28/24 History calcitrioL [Rocaltrol] 0.25 mcg PO MOWEFR 03/28/24 03/28/24 History Allergies Allergy/AdvReac Type Severity Reaction Status Date / Time No Known Allergies Allergy Verified 03/28/24 09:45 Surgical - Exam Vital Signs Temp Pulse Resp BP Pulse Ox 98.0 F 104 H 18 163/94 94 L 03/27/24 23:18 03/27/24 23:18 03/27/24 23:18 03/27/24 23:18 03/27/24 23:18 Results - Labs 03/28/24 00:05 03/28/24 00:05 Abnormal Lab Results - Last 24 Hours (Table) 03/28/24 03/28/24 03/28/24 Range/Units 00:05 00:05 01:07 Lymphocytes # 0.7 L (1.0-4.8) k/uL BUN 24 H (7-17) mg/dL Creatinine 1.29 H (0.52-1.04) mg/dL Glucose 123 H (74-99) mg/dL Urine Appearance Cloudy H (Clear) Urine Protein Trace H (Negative) Urine Ketones 1+ H (Negative) Urine Blood Trace H (Negative) Urine Nitrite Positive H (Negative) Ur Leukocyte Esterase Large H (Negative) Urine RBC 19 H (0-5) /hpf Urine WBC >182 H (0-5) /hpf Ur Squamous Epith Cells 15 H (0-4) /hpf Amorphous Sediment Rare H (None) /hpf Urine Bacteria Few H (None) /hpf Urine Mucus Rare H (None) /hpf Urine Yeast (Budding) Moderate H (None) /hpf Diabetes panel 03/28/24 Range/Units 00:05 Sodium 139 (137-145) mmol/L Potassium 4.1 (3.5-5.1) mmol/L Chloride 106 (98-107) mmol/L Carbon Dioxide 23 (22-30) mmol/L BUN 24 H (7-17) mg/dL Creatinine 1.29 H (0.52-1.04) mg/dL Glucose 123 H (74-99) mg/dL Calcium 9.8 (8.4-10.2) mg/dL AST 25 (14-36) U/L ALT 16 (4-34) U/L Alkaline Phosphatase 90 (38-126) U/L Total Protein 7.5 (6.3-8.2) g/dL Albumin 4.6 (3.5-5.0) g/dL Calcium panel 03/28/24 Range/Units 00:05 Calcium 9.8 (8.4-10.2) mg/dL Albumin 4.6 (3.5-5.0) g/dL Pituitary panel 03/28/24 Range/Units 00:05 Sodium 139 (137-145) mmol/L Potassium 4.1 (3.5-5.1) mmol/L Chloride 106 (98-107) mmol/L Carbon Dioxide 23 (22-30) mmol/L BUN 24 H (7-17) mg/dL Creatinine 1.29 H (0.52-1.04) mg/dL Glucose 123 H (74-99) mg/dL Calcium 9.8 (8.4-10.2) mg/dL Adrenal panel 03/28/24 Range/Units 00:05 Sodium 139 (137-145) mmol/L Potassium 4.1 (3.5-5.1) mmol/L Chloride 106 (98-107) mmol/L Carbon Dioxide 23 (22-30) mmol/L BUN 24 H (7-17) mg/dL Creatinine 1.29 H (0.52-1.04) mg/dL Glucose 123 H (74-99) mg/dL Calcium 9.8 (8.4-10.2) mg/dL Total Bilirubin 1.3 (0.2-1.3) mg/dL AST 25 (14-36) U/L ALT 16 (4-34) U/L Alkaline Phosphatase 90 (38-126) U/L Total Protein 7.5 (6.3-8.2) g/dL Albumin 4.6 (3.5-5.0) g/dL
--- NOTE | 2024-03-28 15:32 | P.HPIM ---
History of Present Illness H&P Date: 03/28/24 Chief Complaint: Dizziness and Abdominal pain Patient is a 88-year-old female with past medical history of hypertension and vertigo presented to the ED with dizziness. The patient mentions her dizziness along with vomiting for 2 days started this Monday which she attributed to vertigo and took meclizine and ondansetron that helped with her symptoms. But yesterday she started having abdominal pain along with distention and started feeling nauseous. She mentions taking an ondansetron which helped with her nausea but her abdominal pain kept getting worse. She mentions the pain is in her entire abdomen associated with some dry heaves. She reports passing flatus today and the last bowel movement was on Monday. She denies any recent changes in her medications or physical activity. She does mention of a previous history of bowel obstruction when she was 16 years old. Additionally she states following up with a skeet operator for stage IIIb chronic kidney disease and also using a bladder pessary. Denies fever, chills, chest pain, shortness of breath, dysuria, hematuria, hematochezia, melena. ED documentation reviewed. In the ED she was treated with ceftriaxone, meclizine, ondansetron, normal saline bolus, lidocaine 2% Uro-Jet jelly and orogastric tube was placed. Vitals on admission T 98 F, KS 104, RR 18, BP 163/94, O2 sat 94% on room air EKG shows sinus rhythm, left axis deviation, poor R wave progression, rate 96 bpm, QTc 408 ms Chest x-ray shows sidehole and tip of enteric tube are in the body of the stomach. Loops of small bowel are dilated measuring up to 3.7 cm maximal diameter, ileus versus obstruction CT of abdomen and pelvis shows dilated small bowel measuring up to 3.5 cm with air-fluid level consistent with bowel obstruction. The bowel within the left lower quadrant and pelvis is thickened with mild surrounding edema consistent w ith enteritis. Atrophy of the left kidney lower pole, nonobstructing 4 mm left lower pole renal stone. Brain CT shows no acute intracranial hemorrhage, midline shift or mass effect Labs on admission showed WBC 8.7, hemoglobin 15.2, sodium 139, potassium 4.1, BUN 24, creatinine 1.29, glucose 123 Troponin I <0.012 UA shows cloudy appearance, trace protein, 1+ ketones, trace blood, positive nitrite, large leukocyte esterase, 19 RBC, more than 182 WBCs, 15 Cuebas epithelial cells, rare amorphous sediment and mucus, few bacteria, moderate budding yeast Review of systems: Pertinent positives and negatives as discussed in HPI, a complete review of systems was performed and all other systems are negative. PMH: Hyperlipidemia, hypertension, stage IIIb chronic kidney disease PSH: Appendicectomy FMH:CAD Allergies:None Social history: Tobacco: Never smoker Alcohol: Denies use Recreational drugs: Denies use Travel: No recent travel history Sick contacts: None Physical examination: Vital signs reviewed General: nontoxic, no distress, appears at stated age Derm: warm, dry, intact Head: atraumatic, normocephalic, symmetric Eyes: EOMI, anicteric sclera Mouth: no lip lesion, mucus membranes moist Cardiovascular: S1 S2 reg, no murmur Lungs: CTA bilateral, no rhonchi, no rales, no accessory muscle use Abdominal: soft, non-tender to palpataion Extremities: No cyanosis, clubbing, or pedal edema. Neuro: Alert, Oriented, Gross neurological examination did not reveal any focal deficits. Psych: well appearing, appropriate affect Assessment/Plan: Patient is an 88-year-old female with past medical history of hypertension, stage IIIb chronic kidney disease, appendicectomy, bowel obstruction presented to the ED with dizziness and abdominal pain. She has been admitted for SBO. #. Small bowel obstruction Chest x-ray shows loops of small bowel are dilated measuring up to 3.7 cm maximal diameter, ileus versus obstruction CT of abdomen and pelvis shows dilated small bowel measuring up to 3.5 cm with air-fluid level consistent with bowel obstruction.Continue NG tube for decompression Continue NG tube for decompression Keep patient n.p.o. Continue 0.9 normal saline at 75 ml/hr Encourage patient to increase activity level General surgery is following #. Nausea and vomiting Continue ondansetron 4 mg IVP Q8HR PRN #. Asymptomatic bacteriuria UA shows cloudy appearance, trace protein, 1+ ketones, trace blood, positive nitrite, large leukocyte esterase, 19 RBC, more than 182 WBCs, 15 Cuebas epithelial cells, rare amorphous sediment and mucus, few bacteria, moderate budding yeast Patient has no UTI symptoms, no indication for antibiotics as of now Urine culture ordered per ED F: 0.9 normal saline at 75 mL/h E: Replete as required N: NPO A: Encourage patient to increase activity level DVT prophylaxis: Lovenox 30 mg SQ daily The patient is admitted with an anticipated more than 2 midnight stay for evaluation of abdominal pain CODE STATUS: Full code Discussed with: Patient Anticipated discharge place: Home Attestation I have seen and examined this patient with my resident , discussed the same with the resident/VIRA, and agree with the dictator's assessment and plan as written Dr. Per agustin Past Medical History Past Medical History: Hyperlipidemia, Hypertension, Renal Disease Additional Past Medical History / Comment(s): "silent heart attack", prolapsed bladder History of Any Multi-Drug Resistant Organisms: None Reported Past Surgical History: Appendectomy Additional Past Surgical History / Comment(s): bladder pessary, ectopic Past Psychological History: No Psychological Hx Reported Smoking Status: Never smoker Past Alcohol Use History: None Reported Past Drug Use History: None Reported - Past Family History Father Family Medical History: No Reported History Medications and Allergies Home Medications Medication Instructions Recorded Confirmed Type amLODIPine [Norvasc] 5 mg PO DAILY #30 tab 10/08/23 03/28/24 Rx Ergocalciferol [Vitamin D2 (1250 1,250 mcg PO Q14D 03/28/24 03/28/24 History Mcg = 11387 Iu)] Estrogens, Conjugated Cream 1 applic TOPICAL MOTH 03/28/24 03/28/24 History [Premarin Vaginal Cream] Vibegron [Gemtesa] 75 mg PO DAILY 03/28/24 03/28/24 History calcitrioL [Rocaltrol] 0.25 mcg PO MOWEFR 03/28/24 03/28/24 History Allergies Allergy/AdvReac Type Severity Reaction Status Date / Time No Known Allergies Allergy Verified 03/28/24 09:45 Physical Exam Vitals: Vital Signs Temp Pulse Resp BP Pulse Ox 03/28/24 07:56 98.2 F 90 18 127/98 92 L 03/28/24 06:00 90 14 145/72 93 L 03/28/24 04:00 87 16 144/75 93 L 03/28/24 01:00 104 H 18 149/86 96 03/27/24 23:18 98.0 F 104 H 18 163/94 94 L Intake and Output 03/27/24 03/28/24 03/28/24 22:59 06:59 14:59 Other: Weight 70.307 kg Results CBC & Chem 7: 03/29/24 04:06 03/29/24 04:06 Labs: Abnormal Lab Results - Last 24 Hours (Table) 03/28/24 03/28/24 03/28/24 Range/Units 00:05 00:05 01:07 Lymphocytes # 0.7 L (1.0-4.8) k/uL BUN 24 H (7-17) mg/dL Creatinine 1.29 H (0.52-1.04) mg/dL Glucose 123 H (74-99) mg/dL Urine Appearance Cloudy H (Clear) Urine Protein Trace H (Negative) Urine Ketones 1+ H (Negative) Urine Blood Trace H (Negative) Urine Nitrite Positive H (Negative) Ur Leukocyte Esterase Large H (Negative) Urine RBC 19 H (0-5) /hpf Urine WBC >182 H (0-5) /hpf Ur Squamous Epith Cells 15 H (0-4) /hpf Amorphous Sediment Rare H (None) /hpf Urine Bacteria Few H (None) /hpf Urine Mucus Rare H (None) /hpf Urine Yeast (Budding) Moderate H (None) /hpf
[2024-03-28] MEDS ORDERED: hydrALAZINE HCL 20 MG/ML 1 ML VIAL IVP PRN (18:57)
[2024-03-29 08:50] LABS: HCT 41.7 % (37.2-46.3); MCH 31.3 pg (27.0-32.0); MCHC 33.6 g/dL (32.0-37.0); MCV 93.3 FL (80.0-97.0); NRBC Per 100 WBC 0 X 10*3/uL (0.00-0.01); Platelet Count 180 X 10*3/uL (140-440); RBC 4.47 X 10*6/uL (4.10-5.20); RDW 13.5 % (11.5-14.5); WBC 7.43 X 10*3/uL (4.50-10.00)
[2024-03-29 08:53] LABS: BUN/Creat Ratio 18.82 Ratio (12.00-20.00); Blood Urea Nitrogen 20.7 mg/dL (9.0-27.0); Calcium 8.9 mg/dL (8.7-10.3); Carbon Dioxide 21.9 mmol/L (21.6-31.8); Chloride 107 mmol/L (96-109); Glucose 97 mg/dL (70-110); Potassium 4.3 mmol/L (3.5-5.5); Sodium 141 mmol/L (135-145)
[2024-03-29] MEDS: ENOXAPARIN 40 MG/0.4 ML SYRINGE SQ SCH (10:01)
[2024-03-29] MEDS ORDERED: DEXTROSE 50% SYRINGE 50 ML IVP PRN ×2 (11:15)
[2024-03-29 11:41] LABS: Glucose,Whole Blood 78 mg/dL (70-110)
[2024-03-29] MEDS: INSULIN ASPART (NovoLOG) 100 UNIT/ML VIAL SQ SCH (12:10)
--- NOTE | 2024-03-29 13:43 | P.PN ---
Subjective Progress Note Date: 03/29/24 Principal diagnosis: Hospital course: Patient is a 88-year-old female with past medical history of hypertension and vertigo presented to the ED with dizziness. The patient mentions her dizziness along with vomiting for 2 days started this Monday which she attributed to vertigo and took meclizine and ondansetron that helped with her symptoms. But yesterday she started having abdominal pain along with distention and started feeling nauseous. She mentions taking an ondansetron which helped with her nausea but her abdominal pain kept getting worse. She mentions the pain is in her entire abdomen associated with some dry heaves. She reports passing flatus today and the last bowel movement was on Monday. She denies any recent changes in her medications or physical activity. She does mention of a previous history of bowel obstruction when she was 16 years old. 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 Denies fever, chills, chest pain, shortness of breath, dysuria, hematuria, hematochezia, melena. ED documentation reviewed. In the ED she was treated with ceftriaxone, meclizine, ondansetron, normal saline bolus, lidocaine 2% Uro-Jet jelly and orogastric tube was placed. Vitals on admission T 98 F, NM 104, RR 18, BP 163/94, O2 sat 94% on room air EKG shows sinus rhythm, left axis deviation, poor R wave progression, rate 96 bpm, QTc 408 ms Chest x-ray shows sidehole and tip of enteric tube are in the body of the stomach. Loops of small bowel are dilated measuring up to 3.7 cm maximal diameter, ileus versus obstruction CT of abdomen and pelvis shows dilated small bowel measuring up to 3.5 cm with air-fluid level consistent with bowel obstruction. The bowel within the left lower quadrant and pelvis is thickened with mild surrounding edema consistent with enteritis. Atrophy of the left kidney lower pole, nonobstructing 4 mm left lower pole renal stone. Brain CT shows no acute intracranial hemorrhage, midline shift or mass effect Labs on admission showed WBC 8.7, hemoglobin 15.2, sodium 139, potassium 4.1, BUN 24, creatinine 1.29, glucose 123 Troponin I <0.012 UA shows cloudy appearance, trace protein, 1+ ketones, trace blood, positive nitrite, large leukocyte esterase, 19 RBC, more than 182 WBCs, 15 squamous epithelial cells, rare amorphous sediment and mucus, few bacteria, moderate budding yeast 03/29/24: Patient seen and examined at bedside. No acute events overnight. She mentions feeling better today. She had one bowel movement today morning. Subsequently her NG tube was removed. Labs show WBC 7.43, hemoglobin 14, sodium 141. Review of systems: Pertinent positives and negatives as discussed in HPI, a complete review of systems was performed and all other systems are negative. Vitals: Signs Reviewed Physical examination: General: nontoxic, no distress, appears at stated age Derm: warm, dry, intact Head: atraumatic, normocephalic, symmetric Eyes: EOMI, anicteric sclera Mouth: no lip lesion, mucus membranes moist Cardiovascular: S1 S2 reg, no murmur Lungs: CTA bilateral, no rhonchi, no rales, no accessory muscle use Abdominal: soft, non-tender to palpataion Extremities: No cyanosis, clubbing, or pedal edema. Neuro: Alert, Oriented, Gross neurological examination did not reveal any focal deficits. Psych: well appearing, appropriate affect Assessment/Plan: Patient is an 88-year-old female with past medical history of hypertension, stage IIIb chronic kidney disease, appendicectomy, bowel obstruction presented to the ED with dizziness and abdominal pain. She has been admitted for SBO which is currently managed with NG tube for decompression. #. Small bowel obstruction Chest x-ray shows loops of small bowel are dilated measuring up to 3.7 cm maximal diameter, ileus versus obstruction CT of abdomen and pelvis shows dilated small bowel measuring up to 3.5 cm with air-fluid level consistent with bowel obstruction.Continue NG tube for decompression NG tube discontinued Diet advanced to clear liquid Continue 0.9 normal saline at 75 ml/hr Encourage patient to increase activity level General surgery is following #. Nausea and vomiting Continue ondansetron 4 mg IVP Q8HR PRN #. Asymptomatic bacteriuria UA shows cloudy appearance, trace protein, 1+ ketones, trace blood, positive nitrite, large leukocyte esterase, 19 RBC, more than 182 WBCs, 15 Cuebas epithelial cells, rare amorphous sediment and mucus, few bacteria, moderate budding yeast Ceftriaxone 1 gm IVPB Q24HR for empiric treatment Urine culture ordered per ED #. Hypertension Continue hydralazine 5 mg IVP Q6HR PRN for SBP>180 F: 0.9 normal saline at 75 mL/h E: Replete as required N: Clear liquid diet A: Encourage patient to increase activity level DVT prophylaxis: Lovenox 30 mg SQ daily I have seen and examined this patient with my resident , discussed the same with the resident/VIRA, and agree with the dictator's assessment and plan as written Dr. Per agustin Objective - Vital Signs Vital signs: Vital Signs Temp 97.6 F 03/29/24 01:01 Pulse 65 03/29/24 01:01 Resp 16 03/29/24 01:01 BP 120/68 03/29/24 01:01 Pulse Ox 94 L 03/29/24 01:01 FiO2 Intake & Output 03/28/24 03/29/24 03/29/24 18:59 06:59 18:59 Weight 70.307 kg Other: # Voids 2 - Labs CBC & Chem 7: 03/29/24 04:06 03/29/24 04:06
--- NOTE | 2024-03-29 13:50 | P.PN ---
Subjective Progress Note Date: 03/29/24 SURGICAL PROGRESS NOTE CHIEF COMPLAINT: SBO HISTORY OF PRESENT ILLNESS: Patient reports feeling better. She did have a large loose bowel movement. She denies any abdominal pain. Denies any nausea. NG tube output about 600 mL. Afebrile. PHYSICAL EXAM: VITAL SIGNS: Reviewed. GENERAL: Well-developed in no acute distress. ABDOMEN: Soft. Nondistended. Nontender. NEUROLOGIC: Alert and oriented. Cranial nerves II through XII grossly intact. ASSESSMENT: 1. Small bowel obstruction improved with conservative management PLAN: -Discontinue NG tube -Start clear liquid diet -Encourage patient to ambulate -Continue to monitor Physician Review Engineer note has been reviewed by physician. Signing provider agrees with the documented findings, assessment, and plan of care. Objective - Vital Signs Vital signs: Vital Signs Temp 98.1 F 03/29/24 07:10 Pulse 95 03/29/24 07:10 Resp 16 03/29/24 07:10 BP 147/73 03/29/24 07:10 Pulse Ox 93 L 03/29/24 07:10 FiO2 Intake & Output 03/28/24 03/29/24 03/29/24 18:59 06:59 18:59 Weight 70.307 kg Other: # Voids 2 - Labs CBC & Chem 7: 03/29/24 04:06 03/29/24 04:06 Labs: Abnormal Lab Results - Last 24 Hours (Table) 03/29/24 Range/Units 04:06 Anion Gap 12.10 H (4.00-12.00) mmol/L Est GFR (CKD-EPI) 49 L (>=60)
[2024-03-29 17:34] LABS: Glucose,Whole Blood 95 mg/dL (70-110)
[2024-03-29 20:37] LABS: Glucose,Whole Blood 96 mg/dL (70-110)
[2024-03-30 06:49] LABS: Glucose,Whole Blood 77 mg/dL (70-110)
[2024-03-30 09:47] LABS: HCT 38.3 % (37.2-46.3); HGB 12.8 g/dL (12.0-15.0); MCH 31.5 pg (27.0-32.0); MCHC 33.4 g/dL (32.0-37.0); MCV 94.3 FL (80.0-97.0); Mean Platelet Volume 11.3 FL (9.5-12.2); NRBC Per 100 WBC 0 X 10*3/uL (0.00-0.01); Platelet Count 137 X 10*3/uL (140-440); RBC 4.06 X 10*6/uL (4.10-5.20); RDW 13.2 % (11.5-14.5); WBC 5.39 X 10*3/uL (4.50-10.00)
[2024-03-30] MEDS: PANTOPRAZOLE 40 MG/10 ML VIAL IVP SCH (09:59)
[2024-03-30 11:03] LABS: BUN/Creat Ratio 20.78 Ratio (12.00-20.00); Blood Urea Nitrogen 18.7 mg/dL (9.0-27.0); Calcium 8.7 mg/dL (8.7-10.3); Carbon Dioxide 22.8 mmol/L (21.6-31.8); Chloride 108 mmol/L (96-109); Glucose 82 mg/dL (70-110); Potassium 4.1 mmol/L (3.5-5.5); Sodium 142 mmol/L (135-145)
[2024-03-30] MEDS: ONDANSETRON 4 MG/2 ML VIAL IVP PRN (11:09)
[2024-03-30 11:27] LABS: Glucose,Whole Blood 79 mg/dL (70-110)
--- NOTE | 2024-03-30 14:28 | P.PN ---
Subjective Progress Note Date: 03/30/24 Principal diagnosis: Hospital course: Patient is a 88-year-old female with past medical history of hypertension and vertigo presented to the ED with dizziness. The patient mentions her dizziness along with vomiting for 2 days started this Monday which she attributed to vertigo and took meclizine and ondansetron that helped with her symptoms. But yesterday she started having abdominal pain along with distention and started feeling nauseous. She mentions taking an ondansetron which helped with her nausea but her abdominal pain kept getting worse. She mentions the pain is in her entire abdomen associated with some dry heaves. She reports passing flatus today and the last bowel movement was on Monday. She denies any recent changes in her medications or physical activity. She does mention of a previous history of bowel obstruction when she was 16 years old. Additionally she states following up with a electrician telephone for stage IIIb chronic kidney disease and also using a bladder pessary. Denies fever, chills, chest pain, shortness of breath, dysuria, hematuria, hematochezia, melena. ED documentation reviewed. In the ED she was treated with ceftriaxone, meclizine, ondansetron, normal saline bolus, lidocaine 2% Uro-Jet jelly and orogastric tube was placed. Vitals on admission T 98 F, W[place] 104, RR 18, BP 163/94, O2 sat 94% on room air EKG shows sinus rhythm, left axis deviation, poor R wave progression, rate 96 bpm, QTc 408 ms Chest x-ray shows sidehole and tip of enteric tube are in the body of the stomach. Loops of small bowel are dilated measuring up to 3.7 cm maximal diameter, ileus versus obstruction CT of abdomen and pelvis shows dilated small bowel measuring up to 3.5 cm with air-fluid level consistent with bowel obstruction. The bowel within the left lower quadrant and pelvis is thickened with mild surrounding edema consistent with enteritis. Atrophy of the left kidney lower pole, nonobstructing 4 mm left lower pole renal stone. Brain CT shows no acute intracranial hemorrhage, midline shift or mass effect Labs on admission showed WBC 8.7, hemoglobin 15.2, sodium 139, potassium 4.1, BUN 24, creatinine 1.29, glucose 123 Troponin I <0.012 UA shows cloudy appearance, trace protein, 1+ ketones, trace blood, positive nitrite, large leukocyte esterase, 19 RBC, more than 182 WBCs, 15 Cuebas epithelial cells, rare amorphous sediment and mucus, few bacteria, moderate budding yeast 03/29/24: Patient seen and examined at bedside. No acute events overnight. She mentions feeling better today. She had one bowel movement today morning. Subsequently her NG tube was removed. Labs show WBC 7.43, hemoglobin 14, sodium 141. 03/30/24: Patient seen and examined at bedside today. She hasn't had a bowel movement today. Currently saturating at 94% on 2 L oxygen via nasal cannula. She was counseled on getting out of bed and ambulating. Obtain chest Xray and PT consulted. Labs today show WBC 5.39, hemoglobin 12.8, BUN 18.7, creatinine 0.9, glucose 82 Review of systems: Pertinent positives and negatives as discussed in HPI, a complete review of systems was performed and all other systems are negative. Vitals: Signs Reviewed Physical examination: General: nontoxic, no distress, appears at stated age Derm: warm, dry, intact Head: atraumatic, normocephalic, symmetric Eyes: EOMI, anicteric sclera Mouth: no lip lesion, mucus membranes moist Cardiovascular: S1 S2 reg, no murmur Lungs: CTA bilateral, no rhonchi, no rales, no accessory muscle use Abdominal: soft, non-tender to palpataion Extremities: No cyanosis, clubbing, or pedal edema. Neuro: Alert, Oriented, Gross neurological examination did not reveal any focal deficits. Psych: well appearing, appropriate affect Assessment/Plan: Patient is an 88-year-old female with past medical history of hypertension, stage IIIb chronic kidney disease, appendicectomy, bowel obstruction presented to the ED with dizziness and abdominal pain. She has been admitted for SBO that was managed with NG tube for decompression. NG tube now discontinued and diet advanced to clear liquids. Currently on 2L oxygen. She is encouraged to ambulate and use incentive spirometer. #. Small bowel obstruction Chest x-ray shows loops of small bowel are dilated measuring up to 3.7 cm maximal diameter, ileus versus obstruction CT of abdomen and pelvis shows dilated small bowel measuring up to 3.5 cm with air-fluid level consistent with bowel obstruction.Continue NG tube for decompression Currently on clear liquid diet Continue 0.9 normal saline at 50 ml/hr Incentive spirometer ordered Encourage patient to increase activity level General surgery is following PT consulted #. Nausea and vomiting Continue ondansetron 4 mg IVP Q8HR PRN #. Asymptomatic bacteriuria UA shows cloudy appearance, trace protein, 1+ ketones, trace blood, positive nitrite, large leukocyte esterase, 19 RBC, more than 182 WBCs, 15 squamous epithelial cells, rare amorphous sediment and mucus, few bacteria, moderate budding yeast Ceftriaxone 1 gm IVPB Q24HR discontinued #. Hypertension Continue hydralazine 5 mg IVP Q6HR PRN for SBP>180 F: 0.9 normal saline at 50 mL/h E: Replete as required N: Clear liquid diet A: Encourage patient to increase activity level DVT prophylaxis: Lovenox 40 mg SQ daily GI prophylaxis: Pantoprazole 40 mg IVP daily Attestation I have seen and examined this patient with my resident , discussed the same with the resident/VIRA, and agree with the dictator's assessment and plan as written Dr. Per agustin Objective - Vital Signs Vital signs: Vital Signs Temp 97.5 F L 03/30/24 01:39 Pulse 65 03/30/24 01:39 Resp 17 03/30/24 01:39 BP 145/75 03/30/24 01:39 Pulse Ox 94 L 03/30/24 01:39 FiO2 Intake & Output 03/29/24 03/30/24 03/30/24 18:59 06:59 18:59 Other: # Voids 2 # Bowel Movements 1 - Labs CBC & Chem 7: 03/30/24 06:18 03/30/24 06:18 Labs: Abnormal Lab Results - Last 24 Hours (Table) 03/29/24 Range/Units 04:06 Anion Gap 12.10 H (4.00-12.00) mmol/L Est GFR (CKD-EPI) 49 L (>=60)
--- NOTE | 2024-03-30 15:41 | P.PN ---
Subjective Progress Note Date: 03/30/24 No acute events overnight. No nausea or vomiting. No worsening abdominal pain. Endorses bowel movements and flatus. Tolerating clear liquid diet. Ambulatory and voiding. Objective - Vital Signs Vital signs: Vital Signs Temp 98.3 F 03/30/24 08:18 Pulse 84 03/30/24 08:18 Resp 20 03/30/24 08:18 BP 161/82 03/30/24 08:18 Pulse Ox 93 L 03/30/24 08:18 FiO2 Intake & Output 03/29/24 03/30/24 03/30/24 18:59 06:59 18:59 Other: # Voids 2 1 # Bowel Movements 1 - Exam Gen: AxO, NAD Pulm: non-labored respirations Abd: soft, nontender. Non-distended. No guarding/rebound/rigidity Extrem: no edema seen - Labs CBC & Chem 7: 03/30/24 06:18 03/30/24 06:18 Labs: Abnormal Lab Results - Last 24 Hours (Table) 03/30/24 03/30/24 Range/Units 06:18 06:18 RBC 4.06 L (4.10-5.20) X 10*6/uL Plt Count 137 L (140-440) X 10*3/uL BUN/Creatinine Ratio 20.78 H (12.00-20.00) Ratio Assessment and Plan Assessment: Patient is an 88-year-old female who presents with small bowel obstruction, now resolving with conservative management Plan: -Continue clear liquid diet -IV hydration -As needed pain and nausea control -Encourage ambulation -DVT/GI prophylaxis -No acute surgical intervention Vinicio Hines M.D. General Surgery
[2024-03-30 17:04] LABS: Glucose,Whole Blood 80 mg/dL (70-110)
[2024-03-30 20:38] LABS: Glucose,Whole Blood 95 mg/dL (70-110)
[2024-03-31 06:52] LABS: Glucose,Whole Blood 80 mg/dL (70-110)
--- NOTE | 2024-03-31 08:02 | XR ---
EXAMINATION TYPE: XR chest 1V portable DATE OF EXAM: 03/31/2024 6:33 AM COMPARISON: 03/28/2020 CLINICAL INDICATION: Female, 88 years old with history of shortness of breath, TECHNIQUE: XR chest 1V portable view(s) obtained. FINDINGS: The heart size is normal. The pulmonary vasculature is normal. Left lower lobe infiltrate is present. There is silhouetting the left diaphragm. Nasogastric. Chronic elevation of the right diaphragm IMPRESSION: 1. Left lower lobe infiltrate. Correlate for pneumonia. Continued Follow up recommended [facility], , 03/31/2024 7:59 AM
[2024-03-31 09:48] LABS: Blood Urea Nitrogen 16.1 mg/dL (9.0-27.0); Calcium 8.5 mg/dL (8.7-10.3); Carbon Dioxide 23.3 mmol/L (21.6-31.8); Chloride 108 mmol/L (96-109); Glucose 85 mg/dL (70-110); Sodium 138 mmol/L (135-145)
[2024-03-31 10:01] LABS: HCT 35.2 % (37.2-46.3); MCH 31.7 pg (27.0-32.0); MCHC 34.1 g/dL (32.0-37.0); MCV 92.9 FL (80.0-97.0); Mean Platelet Volume 10.8 FL (9.5-12.2); NRBC Per 100 WBC 0 X 10*3/uL (0.00-0.01); Platelet Count 147 X 10*3/uL (140-440); RBC 3.79 X 10*6/uL (4.10-5.20); RDW 13.2 % (11.5-14.5); WBC 6.75 X 10*3/uL (4.50-10.00)
[2024-03-31 11:25] LABS: Glucose,Whole Blood 75 mg/dL (70-110)
--- NOTE | 2024-03-31 12:18 | P.PN ---
Subjective Progress Note Date: 03/31/24 Patient feels better. She is tolerating diet. She has had a bowel movement. On exam vital signs appear stable. Abdomen soft. Resolved small bowel obstruction. Patient is stable for discharge from surgical standpoint. Objective - Vital Signs Vital signs: Vital Signs Temp 97.7 F 03/31/24 07:10 Pulse 91 03/31/24 07:10 Resp 16 03/31/24 07:10 BP 169/67 03/31/24 07:10 Pulse Ox 94 L 03/31/24 07:10 FiO2 Intake & Output 03/30/24 03/31/24 03/31/24 18:59 06:59 18:59 Other: Voiding Method Toilet # Voids 1 1 1 - Labs CBC & Chem 7: 03/31/24 03:21 03/31/24 03:21 Labs: Abnormal Lab Results - Last 24 Hours (Table) 03/31/24 03/31/24 Range/Units 03:21 03:21 RBC 3.79 L (4.10-5.20) X 10*6/uL Hct 35.2 L (37.2-46.3) % Est GFR (CKD-EPI) 55 L (>=60) Calcium 8.5 L (8.7-10.3) mg/dL
--- NOTE | 2024-03-31 13:45 | P.PN ---
Subjective Progress Note Date: 03/31/24 Principal diagnosis: Hospital course: Patient is a 88-year-old female with past medical history of hypertension and vertigo presented to the ED with dizziness. The patient mentions her dizziness along with vomiting for 2 days started this Monday which she attributed to vertigo and took meclizine and ondansetron that helped with her symptoms. But yesterday she started having abdominal pain along with distention and started feeling nauseous. She mentions taking an ondansetron which helped with her nausea but her abdominal pain kept getting worse. She mentions the pain is in her entire abdomen associated with some dry heaves. She reports passing flatus today and the last bowel movement was on Monday. She denies any recent changes in her medications or physical activity. She does mention of a previous history of bowel obstruction when she was 16 years old. 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 Denies fever, chills, chest pain, shortness of breath, dysuria, hematuria, hematochezia, melena. ED documentation reviewed. In the ED she was treated with ceftriaxone, meclizine, ondansetron, normal saline bolus, lidocaine 2% Uro-Jet jelly and orogastric tube was placed. Vitals on admission T 98 F, [place] 104, RR 18, BP 163/94, O2 sat 94% on room air EKG shows sinus rhythm, left axis deviation, poor R wave progression, rate 96 bpm, QTc 408 ms Chest x-ray shows sidehole and tip of enteric tube are in the body of the stomach. Loops of small bowel are dilated measuring up to 3.7 cm maximal diameter, ileus versus obstruction CT of abdomen and pelvis shows dilated small bowel measuring up to 3.5 cm with air-fluid level consistent with bowel obstruction. The bowel within the left lower quadrant and pelvis is thickened with mild surrounding edema consistent with enteritis. Atrophy of the left kidney lower pole, nonobstructing 4 mm left lower pole renal stone. Brain CT shows no acute intracranial hemorrhage, midline shift or mass effect Labs on admission showed WBC 8.7, hemoglobin 15.2, sodium 139, potassium 4.1, BUN 24, creatinine 1.29, glucose 123 Troponin I <0.012 UA shows cloudy appearance, trace protein, 1+ ketones, trace blood, positive nitrite, large leukocyte esterase, 19 RBC, more than 182 WBCs, 15 Cuebas epithelial cells, rare amorphous sediment and mucus, few bacteria, moderate budding yeast 03/29/24: Patient seen and examined at bedside. No acute events overnight. She mentions feeling better today. She had one bowel movement today morning. Subsequently her NG tube was removed. Labs show WBC 7.43, hemoglobin 14, sodium 141. 03/30/24: Patient seen and examined at bedside today. She hasn't had a bowel movement today. Currently saturating at 94% on 2 L oxygen via nasal cannula. She was counseled on getting out of bed and ambulating. Obtain chest Xray and PT consulted. Labs today show WBC 5.39, hemoglobin 12.8, BUN 18.7, creatinine 0.9, glucose 82 03/31. Patient seen and examined. Patient is passing gas. Patient had a bowel movement this morning. Diet advanced to full liquid Review of systems: Pertinent positives and negatives as discussed in HPI, a complete review of systems was performed and all other systems are negative. Vitals: Signs Reviewed Physical examination: General: nontoxic, no distress, appears at stated age Derm: warm, dry, intact Head: atraumatic, normocephalic, symmetric Eyes: EOMI, anicteric sclera Mouth: no lip lesion, mucus membranes moist Cardiovascular: S1 S2 reg, no murmur Lungs: CTA bilateral, no rhonchi, no rales, no accessory muscle use Abdominal: No tenderness, no guarding, bowel sounds unable Extremities: No cyanosis, clubbing, or pedal edema. Neuro: Alert, Oriented, Gross neurological examination did not reveal any focal deficits. Psych: well appearing, appropriate affect Assessment/Plan: Patient is an 88-year-old female with past medical history of hypertension, stage IIIb chronic kidney disease, appendicectomy, bowel obstruction presented to the ED with dizziness and abdominal pain. She has been admitted for SBO that was managed with NG tube for decompression. NG tube now discontinued and diet advanced to clear liquids. Currently on 2L oxygen. She is encouraged to ambulate and use incentive spirometer. #. Small bowel obstruction Chest x-ray shows loops of small bowel are dilated measuring up to 3.7 cm maximal diameter, ileus versus obstruction CT of abdomen and pelvis shows dilated small bowel measuring up to 3.5 cm with air-fluid level consistent with bowel obstruction.Continue NG tube for decompression Continue 0.9 normal saline at 50 ml/hr Incentive spirometer ordered Diet advanced to full liquid Encourage patient to increase activity level General surgery is following PT consulted #. Nausea and vomiting resolved Continue ondansetron 4 mg IVP Q8HR PRN #. Asymptomatic bacteriuria UA shows cloudy appearance, trace protein, 1+ ketones, trace blood, positive nitrite, large leukocyte esterase, 19 RBC, more than 182 WBCs, 15 squamous epithelial cells, rare amorphous sediment and mucus, few bacteria, moderate budding yeast Ceftriaxone 1 gm IVPB Q24HR discontinued #. Hypertension Continue hydralazine 5 mg IVP Q6HR PRN for SBP>180 Objective - Vital Signs Vital signs: Vital Signs Temp 97.7 F 03/31/24 07:10 Pulse 91 03/31/24 07:10 Resp 16 03/31/24 07:10 BP 169/67 03/31/24 07:10 Pulse Ox 94 L 03/31/24 07:10 FiO2 Intake & Output 03/30/24 03/31/24 03/31/24 18:59 06:59 18:59 Intake Total 240 Balance 240 Intake: Oral 240 Other: Voiding Method Toilet # Voids 1 1 1 - Labs CBC & Chem 7: 03/31/24 03:21 03/31/24 03:21 Labs: Abnormal Lab Results - Last 24 Hours (Table) 03/31/24 03/31/24 Range/Units 03:21 03:21 RBC 3.79 L (4.10-5.20) X 10*6/uL Hct 35.2 L (37.2-46.3) % Est GFR (CKD-EPI) 55 L (>=60) Calcium 8.5 L (8.7-10.3) mg/dL
[2024-04-01 01:08] VITALS: RESP 16
[2024-04-01 07:38] VITALS: BP 156/87; PULSE 90; TEMP 98
--- NOTE | 2024-04-01 11:40 | P.PN ---
Subjective Progress Note Date: 04/01/24 SURGICAL PROGRESS NOTE CHIEF COMPLAINT: SBO HISTORY OF PRESENT ILLNESS: Patient denies any abdominal pain. Denies any nausea or vomiting. She is having flatus and bowel movements. She does report feeling a little bloated. But she is tolerating the regular diet. PHYSICAL EXAM: VITAL SIGNS: Reviewed. GENERAL: Well-developed in no acute distress. ABDOMEN: Soft. Mildly distended. Nontender. NEUROLOGIC: Alert and oriented. Cranial nerves II through XII grossly intact. ASSESSMENT: 1. Small bowel obstruction improved with conservative management PLAN: -Continue regular diet -Recommend patient being on a bowel regimen at home. Recommend Metamucil or Benefiber -Patient can be discharge from surgical standpoint Physician Power Plant Assistant note has been reviewed by physician. Signing provider agrees with the documented findings, assessment, and plan of care. Objective - Vital Signs Vital signs: Vital Signs Temp 98.0 F 04/01/24 07:10 Pulse 90 04/01/24 07:10 Resp 16 04/01/24 07:10 BP 156/87 04/01/24 07:10 Pulse Ox 92 L 04/01/24 07:10 FiO2 Intake & Output 03/31/24 04/01/24 04/01/24 18:59 06:59 18:59 Intake Total 358 120 Balance 358 120 Intake: Oral 358 120 Other: # Voids 2 1 # Bowel Movements 1 - Labs CBC & Chem 7: 03/31/24 03:21 03/31/24 03:21
--- NOTE | 2024-04-01 14:01 | P.DS ---
Providers Date of admission: 03/28/24 01:32 Expected date of discharge: 04/01/24 Attending physician: Sofiya Giron Consults: 03/28/24 01:31 Consult Physician Urgent Consulting Provider: Real Perez Consult Reason/Comments: SBO Do you want consulting provider notified?: Yes Primary care physician: Linwood [place] Hospital Course: Discharge diagnosis: Small bowel obstruction Nausea and vomiting resolved Asymptomatic bacteriuria Hypertension Hospital Course: Patient is a 88-year-old female with past medical history of hypertension and vertigo presented to the ED with dizziness. The patient mentions her dizziness along with vomiting for 2 days started this Monday which she attributed to vertigo and took meclizine and ondansetron that helped with her symptoms. But yesterday she started having abdominal pain along with distention and started feeling nauseous. She mentions taking an ondansetron which helped with her nausea but her abdominal pain kept getting worse. She mentions the pain is in her entire abdomen associated with some dry heaves. She reports passing flatus today and the last bowel movement was on Monday. She denies any recent changes in her medications or physical activity. She does mention of a previous history of bowel obstruction when she was 16 years old. 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 Denies fever, chills, chest pain, shortness of breath, dysuria, hematuria, hematochezia, melena. Vitals on admission T 98 F, [place] 104, RR 18, BP 163/94, O2 sat 94% on room air. EKG shows sinus rhythm, left axis deviation, poor R wave progression, rate 96 bpm, QTc 408 ms. Chest x-ray shows sidehole and tip of enteric tube are in the body of the stomach. Loops of small bowel are dilated measuring up to 3.7 cm maximal diameter, ileus versus obstruction. CT of abdomen and pelvis shows dilated small bowel measuring up to 3.5 cm with air-fluid level consistent with bowel obstruction. The bowel within the left lower quadrant and pelvis is thickened with mild surrounding edema consistent with enteritis. Atrophy of the left kidney lower pole, nonobstructing 4 mm left lower pole renal stone.. Brain CT shows no acute intracranial hemorrhage, midline shift or mass effect. Labs on admission showed WBC 8.7, hemoglobin 15.2, sodium 139, potassium 4.1, BUN 24, creatinine 1.29, glucose 123. Troponin I <0.012. UA shows cloudy appearance, trace protein, 1+ ketones, trace blood, positive nitrite, large leukocyte esterase, 19 RBC, more than 182 WBCs, 15 Cuebas epithelial cells, rare amorphous sediment and mucus, few bacteria, moderate budding yeast. In the ED she was treated with ceftriaxone, meclizine, ondansetron, normal saline bolus, lidocaine 2% Uro-Jet jelly and orogastric tube was placed. 03/29/24: Patient seen and examined at bedside. No acute events overnight. She mentions feeling better today. She had one bowel movement today morning. Subsequently her NG tube was removed. Labs show WBC 7.43, hemoglobin 14, sodium 141. 03/30/24: Patient seen and examined at bedside today. She hasn't had a bowel movement today. Currently saturating at 94% on 2 L oxygen via nasal cannula. She was counseled on getting out of bed and ambulating. Obtain chest Xray and PT consulted. Labs today show WBC 5.39, hemoglobin 12.8, BUN 18.7, creatinine 0.9, glucose 82 03/31/24: Patient seen and examined. Patient is passing gas. Patient had a bowel movement this morning. Diet advanced to full liquid 04/01/24: Patient evaluated today. No acute events overnight. She had a bowel movement today morning. She mentions feeling a lot better today. She was out of bed and sitting on the chair today. She was also walking down the lobby and is using her incentive spirometer. She has been off oxygen for 24 hours and is currently saturating at 92% on RA. She does complain of a cough usually in the morning, producing clear sputum. Chest x-ray done yesterday shows left lower lobe infiltrate, correlate for pneumonia. Patient seen at bedside today and is feeling good and excited about discharge. Patient will be discharged today and is given a script for guifenesin as well as handout for dizziness and bowel obstruction and is advised to be compliant with incentive spirometer. Patient is advised to follow-up with PCP in 1-2 days. Vital signs are reviewed and stable General: nontoxic, no distress, appears at stated age Derm: warm, dry, intact Head: atraumatic, normocephalic, symmetric Eyes: EOMI, anicteric sclera Mouth: no lip lesion, mucus membranes moist Cardiovascular: S1 S2 reg, no murmur Lungs: CTA bilateral, no rhonchi, no rales, no accessory muscle use Abdominal: No tenderness, no guarding, bowel sounds unable Extremities: No cyanosis, clubbing, or pedal edema. Neuro: Alert, Oriented, Gross neurological examination did not reveal any focal deficits. Psych: well appearing, appropriate affect A total of 30 minutes of time were spent preparing this complex discharge herb dumont. Patient was discharged on 04/01/24 at 1300. Attestation I have seen and examined this patient with my resident , discussed the same with the resident/VIRA, and agree with the dictator's assessment and plan as written Dr. Per agustin Patient Condition at Discharge: Stable Plan - Discharge Summary Discharge Rx Participant: Yes New Discharge Prescriptions: New guaiFENesin-DM 600/30MG [Mucinex Dm] 1 tab PO Q12HR 14 Days #28 tab Continue amLODIPine [Norvasc] 5 mg PO DAILY #30 tab calcitrioL [Rocaltrol] 0.25 mcg PO MOWEFR Ergocalciferol [Vitamin D2 (1250 Mcg = 56391 Iu)] 1,250 mcg PO Q14D Estrogens, Conjugated Cream [Premarin Vaginal Cream] 1 applic TOPICAL MOTH Vibegron [Gemtesa] 75 mg PO DAILY Discharge Medication List amLODIPine [Norvasc] 5 mg PO DAILY #30 tab 10/08/23 [Rx] Ergocalciferol [Vitamin D2 (1250 Mcg = 43376 Iu)] 1,250 mcg PO Q14D 03/28/24 [History] Estrogens, Conjugated Cream [Premarin Vaginal Cream] 1 applic TOPICAL MOTH 03/28/24 [History] Vibegron [Gemtesa] 75 mg PO DAILY 03/28/24 [History] calcitrioL [Rocaltrol] 0.25 mcg PO MOWEFR 03/28/24 [History] guaiFENesin-DM 600/30MG [Mucinex Dm] 1 tab PO Q12HR 14 Days #28 tab 04/01/24 [Rx] Follow up Appointment(s)/Referral(s): [facility], [NON-STAFF] - As Needed Linwood Rai DO [Primary Care Provider] - 04/05/24 1:30 pm Patient Instructions/Handouts: Dizziness (GEN), Bowel Obstruction (DC) Discharge Disposition: HOME WITH HOME HEALTH SERVICES
== END 2024-04-01 12:36 | disposition home health service (06) | DRG 390 ==
LOC: EC 23:16 → 4SSUR 03-28 01:32
PROVIDERS: ADMIT Hospitalist; ATTEND Hospitalist
PROC: 0D9670Z Drainage of Stomach with Drainage Device, Via Natural or Artificial Opening (ICD-10-PCS; principal; 2024-03-28)
DX: K56.609 Unspecified intestinal obstruction, unspecified as to partial versus complete obstruction (principal); E78.5 Hyperlipidemia, unspecified; I12.9 Hypertensive chronic kidney disease with stage 1 through stage 4 chronic kidney disease, or unspecified chronic kidney disease; N18.32 Chronic kidney disease, stage 3b; N20.0 Calculus of kidney; I25.2 Old myocardial infarction; Z79.899 Other long term (current) drug therapy; Z90.49 Acquired absence of other specified parts of digestive tract
CPT/HCPCS: 36415; 70450; 71045; 74176; 80048; 80053; 81001; 83036; 84484; 85025; 85027; 93005; 96361; 96365; 96375; 99285